=== PATIENT | female | born 1985 | race Caucasian/White ===

== ENCOUNTER 2020-10-10 19:29 | Emergency (ER) | payer OTHER, SELFPAY ==
--- NOTE | 2020-10-10 19:32 | ED_ITS ---
HPI - Abdominal Pain General Chief Complaint: Abdominal Pain Stated Complaint: right side abd pains,nausea Time Seen by Provider: 10/10/20 19:32 Source: patient Mode of arrival: Ambulatory Limitations: no limitations History of Present Illness HPI narrative: 35F nonsmoker with history of chronic abdominal pelvic pain presents with a chief complaint of 3 days of increasing right lower quadrant pain that feels different than prior episodes. She has had nausea and a few episodes of vomiting. She denies any fever or chills. Her pain is worse when she moves and improves with rest. She denies any vaginal bleeding, discharge, dysuria, frequency or urgency. She states that is sharp and stabbing and 10/10. It initially was a bit intermittent and now is persistent. MD complaint: abdominal pain Onset (ago): day(s) Pain Consistency: constant Location: RLQ Severity: severe Quality: cramping and stabbing Radiation: none Relieving factors: rest Exacerbating factors: movement Associated symptoms: nausea Related Data Home Medications Medication Instructions Recorded Confirmed morphine 30 mg PO Q12H 10/10/20 10/10/20 oxycodone 10 mg PO TID PRN 10/10/20 10/10/20 Previous Rx's Medication Instructions Recorded amoxicillin-pot clavulanate 1 tab PO BID #20 tab 10/10/20 [Augmentin] ondansetron 4 mg PO TID-QID PRN #10 tab 10/10/20 promethazine 12.5 mg AL Q4-6H PRN #12 each 10/10/20 Allergies Allergy/AdvReac Type Severity Reaction Status Date / Time celecoxib [From Celebrex] AdvReac Vomiting Verified 10/10/20 19:51 codeine AdvReac Abdominal Verified 10/10/20 19:51 Pain ketorolac [From Toradol] AdvReac Vomiting Verified 10/10/20 19:51 metoclopramide [From Reglan] AdvReac Verified 10/10/20 19:51 NSAIDS (Non-Steroidal AdvReac Vomiting Verified 10/10/20 19:51 Anti-Inflamma tramadol [From Ultram] AdvReac Verified 10/10/20 19:51 Review of Systems Constitutional Constitutional: Denies chills, Denies fatigue, Denies fever(s), Denies frequent falls, Denies lethargy and Denies weakness Eyes Eyes: Denies change in vision, Denies eye discharge, Denies irritation and Denies loss of vision ENT Ears, Nose, Mouth, and Throat: Denies change in voice, Denies dizziness, Denies neck pain, Denies sore throat and Denies throat swelling Cardiovascular Cardiovascular: Denies chest pain, Denies irregular heart rhythm, Denies lightheadedness, Denies palpitations, Denies dyspnea, Denies dyspnea on exertion and Denies orthopnea Respiratory Respiratory: Denies cough, Denies dyspnea, Denies dyspnea on exertion and Denies wheezing Gastrointestinal Gastrointestinal: Reports abdominal pain, Denies change in bowel habits, Denies diarrhea and Reports nausea Musculoskeletal Musculoskeletal: Denies neck pain and Denies numbness Integumentary/Breasts Skin/Breast: Denies pruritus, Denies erythema, Denies rash and Denies wounds Neurologic Neurologic: Denies behavioral changes, Denies confusion, Denies dizziness, Denies frequent falls, Denies loss of vision, Denies numbness and Denies weakness Psychiatric Psychiatric: Denies anxiety, Denies behavioral changes, Denies confusion, Denies depression, Denies homicidal ideation and Denies suicidal ideation Endocrine Endocrine: Denies fatigue, Denies flushing and Denies palpitations Hematologic/Lymphatic Hematologic/Lymphatic: Denies easy bruising Allergic/Immunologic Allergic/Immunologic: Denies urticaria, Denies throat swelling and Denies wheezing Patient History alcohol intake frequency: 0-2 drinks per day Exam Narrative Exam Narrative: GENERAL: [35] year old patient appears stated age. Well-nouris hed, well-developed patient, in obvious pain, rubbing her lower abdomen, tearful HEAD: Atraumatic. Normocephalic. EYES: Pupils equal round and reactive. Extraocular motions intact. No scleral icterus. No injection or drainage. ENT: Nose without bleeding, purulent drainage. Throat without erythema, tonsillar hypertrophy or exudate. Airway patent. NECK: Trachea midline. Non tender CARDIOVASCULAR: Regular rate and rhythm without murmurs, gallops, or rubs. RESPIRATORY: Clear to auscultation. Breath sounds equal bilaterally. No wheezes, rales, or rhonchi. GASTROINTESTINAL: Abdomen soft, tender in the lower abdomen no rebound, nondistended. Bowel sounds present in all 4 quadrants EXTREMITIES: No edema or joint tenderness. BACK: Nontender without deformity or crepitance. No flank tenderness. NEURO: AOx3. SKIN: No rash or erythema of visible areas Initial Vital Signs Initial Vital Signs: Vital Signs Temperature 98.0 F 10/10/20 19:51 Pulse Rate 105 H 10/10/20 19:51 Respiratory Rate 22 10/10/20 19:51 Blood Pressure 148/103 H 10/10/20 19:51 Pulse Oximetry 100 10/10/20 19:51 Course Orders Ordered: ED Orders 10/10/20 19:50 Complete Blood Count AUTO DIFF Stat Comprehensive Metabolic Panel Stat 10/10/20 20:03 CT abdomen pelvis w con Stat 10/10/20 20:10 Blood Culture Stat Ondansetron HCl (Ondansetron 4 Mg/2 Ml Inj) 4 mg IV Q4HR PRN PRN Reason: Nausea And Vomiting Last Admin: 10/10/20 19:47 Dose: 4 mg Documented by: VANDANA Discontinued Medications Amoxicillin/Clavulanate Potassium (Amoxicillin/Clav 875/125 Mg) 1 tab PO NOW ONE Stop: 10/10/20 21:09 Last Admin: 10/10/20 21:16 Dose: 1 tab Documented by: Hydromorphone HCl (Hydromorphone 0.5 Mg Inj) 0.5 mg IV NOW ONE Stop: 10/10/20 19:38 Last Admin: 10/10/20 19:47 Dose: 0.5 mg Documented by: VANDANA Sodium Chloride (Normal Saline 0.9%) 1,000 mls @ 1,000 mls/hr IV BOLUS ONE Stop: 10/10/20 20:36 Last Admin: 10/10/20 19:47 Dose: 1,000 mls/hr Documented by: VANDANA Ondansetron HCl (Ondansetron 4 Mg Odt Prepack) 1 bottle MISC SEEINSTR ONE Stop: 10/10/20 21:09 Last Admin: 10/10/20 21:15 Dose: 1 bottle Documented by: Vital Signs Vital signs: Vital Signs - 8 hr 10/10/20 19:51 Temperature 98.0 F Pulse Rate 105 H Respiratory Rate 22 Blood Pressure 148/103 H Pulse Oximetry 100 MDM - Abdominal Pain Lab Data Result diagrams: 10/10/20 19:50 10/10/20 19:50 Labs: Lab Results 10/10/20 10/10/20 Range/Units 19:50 19:50 WBC 9.3 (4.5-11.0) X10^3/uL RBC 4.81 (4.0-5.2) X10^6/uL Hgb 12.0 (12.0-16.0) g/dL Hct 38.3 (36-46) % MCV 79.5 L (80-100) fL MCH 25.0 L (26-34) PG MCHC 31.4 (30-36) % RDW 16.2 H (11.6-14.8) % Plt Count 307 (150-400) X10^3/uL Neut % (Auto) 45.9 L (50-75) % Lymph % (Auto) 45.0 H (25-40) % [place] % (Auto) 4.9 (3-14) % Eos % (Auto) 2.2 (2-4) % Baso % (Auto) 2.0 (0-2) % Neut # (Auto) 4200 (6479-4082) /uL Lymph # (Auto) 4200 (4710-6372) /uL [place] # (Auto) 500 (0-900) /uL Eos # (Auto) 200 (0-450) /uL Baso # (Auto) 200 H (0-100) /uL Sodium 137 (137-145) mmol/L Potassium 5.5 H (3.4-5.1) mmol/L Chloride 106 (98-107) mmol/L Carbon Dioxide 22 (22-32) mmol/L BUN 11 (7-17) mg/dL Creatinine 0.71 (0.52-1.04) mg/dL Estimated GFR > 60.0 (>60) mL/min BUN/Creatinine Ratio 15.5 (6-22) Glucose 99 (70-100) mg/dL Calcium 9.3 (8.4-10.2) mg/dL Total Bilirubin 0.9 (0.2-1.3) mg/dL AST 51 H (14-36) IU/L ALT 24 (<35) IU/L Alkaline Phosphatase 90 (38-126) U/L Total Protein 8.6 H (6.3-8.2) g/dL Albumin 4.9 (3.5-5.0) g/dL Globulin 3.7 (1.7-4.1) g/dL Albumin/Globulin Ratio 1.3 (1.0-2.8) Point of care testing: Urine Dip Bedside Urine Glucose Negative Bedside Urine Bilirubin - Negative Bedside Urine Ketone - Negative Urine Specific Bim 1.015 Bedside Urine Occult Blood - Negative Bedside Urine pH 6.0 Bedside Urine Protein - Negative Bedside Urine Urobilinogen - Negative Bedside Urine Nitrite - Negative Bedside Urine Leukocytes - Negative Esterase Imaging Data CT scan - abdomen/pelvis: Radiologist's Impression: [address] [id number] Scan ReportSigned Patient: China SiddiquiMR#: [id number]: 1985Acct:[id number]/Sex: 35 / FDate of Service: 10/10/20Loc: EDAccession Number: [id number] Procedure: CT abdomen pelvis w con Ordering Provider: Jose Manuel Antonio D.O. PROCEDURE: CT ABDOMEN PELVIS W CON INDICATIONS: severe RLQ pain TECHNIQUE: After the administration of intravenous contrast, 5 mm thick sections acquired from the diaphragm to the symphysis. 5 mm coronal and sagittal reformats were acquired. For radiation dose reduction, the following was used: automated exposure control, adjustment of mA and/or kV according to patient size. COMPARISON: None. FINDINGS: Image quality: Excellent. ABDOMEN: Lung bases: Lung bases are clear. Heart size is normal. Solid organs: Liver is normal in size and enhancement. Gallbladder is surgically absent. Biliary system is non dilated. Pancreas enhances normally. Spleen is normal in size and enhancement. No adrenal nodules. Kidneys demonstrate normal size and enhancement, without hydronephrosis. Peritoneum and bowel: There is no evidence of bowel obstruction. No gastric or small bowel wall thickening. Appendix is visualized in right lower quadrant and is within normal limits. Questionable wall thickening involving descending colon and sigmoid colon is seen with narrowing of the lumen. No significant pericolonic fat stranding. There is no abscess collection. No free fluid or free air. Nodes and vessels: No retroperitoneal or mesenteric adenopathy by size criteria. Aorta and inferior vena cava are normal in size. Miscellaneous: Small umbilical hernia is seen containing fat only. PELVIS: Genitourinary: Bladder wall thickness is normal. Patient is status post hysterectomy. Miscellaneous: No inguinal hernias or adenopathy. Bones: No suspicious bony lesions. No vertebral body compression fractures. IMPRESSION: 1. Questionable descending and sigmoid colon wall thickening with narrowing of the lumen which may be due to under distension. Low-grade colitis cannot be excluded. 2. Normal appendix. No abscess collection. No bowel obstruction. No free fluid or free air. 3. Prior cholecystectomy and hysterectomy. Dictated by: Travon Xie M.D. on 10/10/2020 at 21:00 Approved by: Travon Xie M.D. on 10/10/2020 at 21:02 [facility] Narrative Medical decision making narrative: Multiple etiologies for patient's symptoms considered including: [Appendicitis versus bowel obstruction versus colitis versus other] Patient's symptoms improved over duration of stay with above-stated therapies. Findings and discharge diagnosis discussed with patient/family followed by verbalization of understanding Return precautions discussed with patient/family whom verbalize understanding. Discharge Plan Departure Patient Disposition: Home Clinical Impression: Colitis Instructions: DI for Abdominal Pain-Adult Activity Restrictions/Additional Instructions: *You have been diagnosed with [bowel pain from colitis. Lab work is very reassuring and CT scan shows no surgical problems such as bowel obstruction or appendicitis.] *What to do: *Take medications as directed: Prescriptions sent to [facility] at your request *Follow up with your primary care provider in 2-3 days, call for an appointment. Let them know you were seen in the Emergency Department and that we ask that you be seen in follow up *Return to ER if you should have any new, worsening or concerning symptoms, such as [increasing pain, fever greater than 101 F, persistent vomiting or other bothersome symptoms] Please consider a clear liquid diet for 24-48 hours and then advance back to your normal diet slowly as tolerated Prescriptions: New ondansetron 4 mg tablet,disintegrating 4 mg PO TID-QID PRN (Reason: nausea and vomiting) Qty: 10 RF: 0 amoxicillin-pot clavulanate [Augmentin] 875-125 mg tablet 1 tab PO BID Qty: 20 RF: 0 promethazine 12.5 mg suppository 12.5 mg AL Q4-6H PRN (Reason: nausea and vomiting) Qty: 12 RF: 0 No Action morphine 30 mg Tablet Extended Release 30 mg PO Q12H RF: 0 oxycodone 10 mg Tablet 10 mg PO TID PRN (Reason: Pain (Scale Score 7-10)) RF: 0 Referrals: Miscellaneous,Doctor, MD [Primary Care Provider] -
[2020-10-10] MEDS: ONDANSETRON 4 MG/2 ML INJ IV (19:47)
[2020-10-10] MEDS: SODIUM CHLORIDE 0.9% 1,000 ML 1000 ML IV (19:47)
[2020-10-10] MEDS: HYDROMORPHONE 0.5 MG INJ IV (19:47)
[2020-10-10 19:51] VITALS: BP 148/103; PULSE 105; RESP 22; TEMP 36.7; O2SAT 100; BMI 30.2
[2020-10-10 19:53] VITALS: PULSE 102; O2SAT 99
[2020-10-10 19:54] VITALS: BP 141/90; PULSE 103; O2SAT 100
[2020-10-10 20:00] VITALS: BP 142/93; PULSE 104; O2SAT 100
--- NOTE | 2020-10-10 20:03 | DI.CT.S_ITS ---
PROCEDURE: CT ABDOMEN PELVIS W CON INDICATIONS: severe RLQ pain TECHNIQUE: After the administration of intravenous contrast, 5 mm thick sections acquired from the diaphragm to the symphysis. 5 mm coronal and sagittal reformats were acquired. For radiation dose reduction, the following was used: automated exposure control, adjustment of mA and/or kV according to patient size. COMPARISON: None. FINDINGS: Image quality: Excellent. ABDOMEN: Lung bases: Lung bases are clear. Heart size is normal. Solid organs: Liver is normal in size and enhancement. Gallbladder is surgically absent. Biliary system is non dilated. Pancreas enhances normally. Spleen is normal in size and enhancement. No adrenal nodules. Kidneys demonstrate normal size and enhancement, without hydronephrosis. Peritoneum and bowel: There is no evidence of bowel obstruction. No gastric or small bowel wall thickening. Appendix is visualized in right lower quadrant and is within normal limits. Questionable wall thickening involving descending colon and sigmoid colon is seen with narrowing of the lumen. No significant pericolonic fat stranding. There is no abscess collection. No free fluid or free air. Nodes and vessels: No retroperitoneal or mesenteric adenopathy by size criteria. Aorta and inferior vena cava are normal in size. Miscellaneous: Small umbilical hernia is seen containing fat only. PELVIS: Genitourinary: Bladder wall thickness is normal. Patient is status post hysterectomy. Miscellaneous: No inguinal hernias or adenopathy. Bones: No suspicious bony lesions. No vertebral body compression fractures. IMPRESSION: 1. Questionable descending and sigmoid colon wall thickening with narrowing of the lumen which may be due to under distension. Low-grade colitis cannot be excluded. 2. Normal appendix. No abscess collection. No bowel obstruction. No free fluid or free air. 3. Prior cholecystectomy and hysterectomy. Dictated by: Travon Xie M.D. on 10/10/2020 at 21:00 Approved by: Travon Xie M.D. on 10/10/2020 at 21:02
[2020-10-10 20:04] LABS: Add Manual Diff / Slide Review NO; Basophils Absolute Auto 200 /uL (0-100); Eosinophils Absolute Auto 200 /uL (0-450); Eosinophils Percent Auto 2.2 % (2-4); Hematocrit 38.3 % (36-46); Lymphocytes Absolute Auto 4200 /uL (1100-4500); Mean Corpuscular HGB Conc 31.4 % (30-36); Mean Corpuscular Volume 79.5 fL (80-100); Monocytes Absolute Auto 500 /uL (0-900); Monocytes Percent Auto 4.9 % (3-14); Neutrophils Absolute Auto 4200 /uL (1500-7000); Neutrophils Percent Auto 45.9 % (50-75); Platelet Count 307 X10^3/uL (150-400); Red Blood Cell Count 4.81 X10^6/uL (4.0-5.2); Red Cell Distribution Width 16.2 % (11.6-14.8); White Blood Cell Count 9.3 X10^3/uL (4.5-11.0)
[2020-10-10 20:23] LABS: Alanine Aminotransferase 24 IU/L (<35); Albumin 4.9 g/dL (3.5-5.0); Albumin Globulin Ratio 1.3 (1.0-2.8); Alkaline Phosphatase 90 U/L (38-126); Aspartate Aminotransferase 51 IU/L (14-36); BUN Creatinine Ratio 15.5 (6-22); Bilirubin Total 0.9 mg/dL (0.2-1.3); Blood Urea Nitrogen 11 mg/dL (7-17); Calcium 9.3 mg/dL (8.4-10.2); Carbon Dioxide 22 mmol/L (22-32); Chloride 106 mmol/L (98-107); Estimated Glomerular Filt Rate > 60.0 mL/min (>60); Globulin 3.7 g/dL (1.7-4.1); Glucose 99 mg/dL (70-100); Sodium 137 mmol/L (137-145); Total Protein 8.6 g/dL (6.3-8.2)
[2020-10-10 20:28] LABS: HEMOLYSIS 211 (0-50); Potassium 5.5 mmol/L (3.4-5.1)
[2020-10-10 20:30] VITALS: BP 158/89; PULSE 90; O2SAT 100
[2020-10-10 21:04] VITALS: BP 141/89
[2020-10-10] MEDS: ONDANSETRON 4 MG ODT PREPACK 1 BOTTLE MISC (21:15)
[2020-10-10] MEDS: AMOXICILLIN/CLAV 875/125 MG 1 TAB PO (21:16)
== END 2020-10-10 21:22 | disposition home or self-care (01) ==
PROVIDERS: Emergency Provider Emergency Medicine
DX: K52.9 Noninfective gastroenteritis and colitis, unspecified (principal)
CPT/HCPCS: 36415; 74177; 80053; 81003; 85025; 87040; 96361; 96374; 96375; 99284; J1170; J2405; Q9967

== ENCOUNTER 2020-11-19 19:56 | Emergency (ER) | payer OTHER, SELFPAY ==
[2020-11-19 20:05] VITALS: BP 151/88; PULSE 100; RESP 20; TEMP 36.6; O2SAT 100; BMI 28.8
--- NOTE | 2020-11-19 21:35 | ED_ITS ---
HPI - Headache General Chief Complaint: Headache Stated Complaint: possible medication reaction, eye pressure,elev HR Time Seen by Provider: 11/19/20 20:13 Mode of arrival: Ambulatory Limitations: no limitations History of Present Illness HPI Narrative: 35-year-old woman with a history of chronic pain on chronic pain management, fibromyalga, anxiety depression panic attack and PTSD. She notes that much of her psychiatric issues were significantly improved when she was living in [place]. She and her were stationed back on [facility] in July. She notes that she had a number of ?issues? when she lived on [facility] previously and many of these anxieties are presenting as much more problematic as she has returned. She is finding that she is having difficulty with increasing anxiety, sleeping, feeling that she is going crazy, perseverating thoughts and she had her 1st panic attack. She had a very difficult time finding of provider who was willing to handle her chronic pain management when she moved back up. She has had difficulty finding a provider to help with her psychiatric issues or a counselor. She has been trying value at [facility] to establish care. She comes in today after she was started on Coreg with complaints of ?feeling weird?, visual changes in the left eye, pressure over the whole side of her face with numbness immediately after taking the 1st dose. At this time she still has some slight decreased sensation. She had near panic attack over the symptoms that she experienced with the Coreg and is concerned that the Coreg is a problem. She was seen in to fill in their ER for similar sounding complaints was given a prescription for 1 mg Ativan but has been afraid to take that. One of her psychiatric providers had given her nebulized ketamine which she tried with inappropriate dosing technique and significantly less medication delivered but found that it did help relieve some of her paranoia. She does not report hearing any voices, she does feel that she is becoming more paranoid and concerned that she can not continue functioning, increasingly anxious and overwhelmed. She has been on multiple antidepressants in the past and feels that many of them were not effective. She was recently diagnosed with ADHD and started on methylphenidate. Related Data Home Medications Medication Instructions Recorded Confirmed morphine 30 mg PO Q12H 10/10/20 10/10/20 oxycodone 10 mg PO TID PRN 10/10/20 10/10/20 Previous Rx's Medication Instructions Recorded amoxicillin-pot clavulanate 1 tab PO BID #20 tab 10/10/20 [Augmentin] ondansetron 4 mg PO TID-QID PRN #10 tab 10/10/20 promethazine 12.5 mg NE Q4-6H PRN #12 each 10/10/20 duloxetine [Cymbalta] 20 mg PO BID #60 cap 11/19/20 Allergies Allergy/AdvReac Type Severity Reaction Status Date / Time celecoxib [From Celebrex] AdvReac Vomiting Verified 10/10/20 19:51 codeine AdvReac Abdominal Verified 10/10/20 19:51 Pain ketorolac [From Toradol] AdvReac Vomiting Verified 10/10/20 19:51 metoclopramide [From Reglan] AdvReac Verified 10/10/20 19:51 NSAIDS (Non-Steroidal AdvReac Vomiting Verified 10/10/20 19:51 Anti-Inflamma tramadol [From Ultram] AdvReac Verified 10/10/20 19:51 Review of Systems Review of Systems Narrative: She notes intermittent chest pain, positive palpitations, dyspnea when she is increasingly anxious, nausea and diarrhea associated with anxiety. She reports no evidence of a dysuria, hematuria, rashes, syncope. She denies any suicidal ideation Remainder of complete review of systems is otherwise unremarkable except for that included in the HPI. Patient History Medical History Anxiety Chronic pain Chronic post-traumatic stress disorder Depression Fibromyalgia alcohol intake frequency: 0-2 drinks per day Substance Use Type: former substance user Exam Narrative Exam Narrative: General: Healthy physical appearance with significant emotional distress. HEENT: Moist mucous membranes, normal sclera with reactive pupils, Respiratory: Lungs are clear to auscultation, no wheezing no rales no rhonchi. Full and symmetrical air movement Cardiac: Regular rate and rhythm no murmurs no bruits Abdomen: Soft, nontender, good bowel tones, no flank pain Skin: Warm and dry, no rashes Neurologic: Grossly neurologically intact with no obvious asymmetries or abnor malities Extremities: No trauma, well perfused Psych: Cooperative, appropriate insight and affect, good eye contact with nonpressured speech Initial Vital Signs Initial Vital Signs: Vital Signs Temperature 97.9 F 11/19/20 20:05 Pulse Rate 100 H 05/13/21 20:05 Respiratory Rate 20 11/19/20 20:05 Blood Pressure 151/88 H 11/19/20 20:05 Pulse Oximetry 100 11/19/20 20:05 Course Vital Signs Vital signs: Vital Signs - 8 hr 11/19/20 20:05 Temperature 97.9 F Pulse Rate 100 H Respiratory Rate 20 Blood Pressure 151/88 H Pulse Oximetry 100 MDM - Headache MDM Narrative Medical decision making narrative: 35-year-old woman with concerns regarding left facial symptoms after 1st dose of Coreg that all seemed very clearly related to overwhelming anxiety. It does seem that her overall stress, PTSD, depression with subsequent anxiety have worsened dramatically since returning to [facility] in July. She is having difficulty establishing care but trying to be quite responsible in doing so. Increased stressors in dealing with the trauma she experienced here when she lived in the area from [id number]. She apparently has 2 children with situational issues and there on stress is, depression and psychiatric as well as medical provider needs. At this time she has no suicidal ideation but she is asking for help. She notes that it points in her life she has been on he would numbers of medications and is quite pleased with the minimal amount of medication she currently is on. We had a long discussion regarding antidepressants. She was on duloxetine for an extended period of time and felt that of the antidepressants that she has been on this was probably the most helpful. She does not believe that any of them have been all that useful. She was recently started on methylphenidate for ADD and she believes that is helping. She is willing to reconsider going back on duloxetine and feels that it probably would be appropriate to be on some type of antidepressant. She does have a counseling appointment coming up next week but will likely not be able to get to a psychiatric prescriber for an extended period of time. Will go ahead and start her on low-dose duloxetine, 20 mg b.i.d. to see if we can help with immediate symptoms. She currently has 1 mg Ativan tablets and I reassured her that she can take 0.5 mg at least once a day as needed for overwhelming anxiety even in light of her chronic opioid medications. Total of 47 minutes was spent in direct consultation and counseling today. She is safe for discharge Discharge Plan Departure Patient Disposition: Home Clinical Impression: Anxiety, Chronic post-traumatic stress disorder Depression Qualifiers: Depression Type: unspecified Qualified Code(s): F32.9 - Major depressive disorder, single episode, unspecified Instructions: DI for Depression -- Adult, DI for Anxiety -- Adult Activity Restrictions/Additional Instructions: Thank you for coming in today I am sorry you are feeling so overwhelmed. I do think that the symptoms that you experienced after taking the Coreg were more related to anxiety than anything life-threatening. You have done all of the appropriate steps in trying to get established with physicians. Please continue to make sure that you are working on the psycholog ist appointment. From there I think that you will significantly benefit from eventually being seen by a psychiatrist to talk about appropriate medications for you. In the meantime, I am going to suggest that you restart Cymbalta at a low dose and see how it helps with your overall anxiety and mood. I suspect that now that you are on the Adderall, you may find that the antidepressants are more e ffective for you. 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 When the stress is completely overwhelming, it is safe to use 0.5 mg of Ativan up to once a day. If you feel like you need to kill yourself or hurt anybody else, please feel free to return to the emergency room Prescriptions: New duloxetine [Cymbalta] 20 mg capsule,delayed release(DR/EC) 20 mg PO BID Qty: 60 RF: 0 No Action morphine 30 mg Tablet Extended Release 30 mg PO Q12H RF: 0 oxycodone 10 mg Tablet 10 mg PO TID PRN (Reason: Pain (Scale Score 7-10)) RF: 0 ondansetron 4 mg tablet,disintegrating 4 mg PO TID-QID PRN (Reason: nausea and vomiting) Qty: 10 RF: 0 amoxicillin-pot clavulanate [Augmentin] 875-125 mg tablet 1 tab PO BID Qty: 20 RF: 0 promethazine 12.5 mg suppository 12.5 mg NE Q4-6H PRN (Reason: nausea and vomiting) Qty: 12 RF: 0 Referrals: Sera Lema [Primary Care Provider] -
== END 2020-11-19 21:49 | disposition home or self-care (01) ==
PROVIDERS: Emergency Provider Emergency Medicine; PCP Physician Assistant
DX: F32.9 Major depressive disorder, single episode, unspecified (principal); F41.9 Anxiety disorder, unspecified; F43.12 Post-traumatic stress disorder, chronic
CPT/HCPCS: 99281

== ENCOUNTER 2020-11-20 18:41 | Emergency (ER) | payer OTHER, SELFPAY ==
[2020-11-20 18:50] VITALS: BP 139/91; PULSE 102; RESP 16; TEMP 35.9; O2SAT 100; BMI 28.9
--- NOTE | 2020-11-20 21:13 | ED_ITS ---
HPI - Psych General Chief Complaint: Psychiatric Symptoms Stated Complaint: NAUSEA REACTION TO THE MEDICATION Time Seen by Provider: 11/20/20 19:18 Source: patient and family () Mode of arrival: Ambulatory Limitations: no limitations History of Present Illness HPI Narrative: Patient is a 35-year-old female who is here for the 2nd time within the past week for symptoms that seem to be somewhat difficult for her to describe. She has had some nausea. She thinks she is potentially reacting to some medications. She is relatively new to the area and has a primary doctor but has not seen this doctor up to this point. She states that this individual only ?writes referrals ?although she does states he is her primary provider. She has another provider that has written her psychiatric medications. She also has a pain management doctor that she sees. She is recently started on carvedilol for which she states was a fast heart rate. During her last visit here she was also given a prescription for Cymbalta. She is also at some point received a prescription for Ativan. At some point in the past couple weeks was also diagnosed with which she describes as pancreatitis and placed on medications for this. She returns today because she continues to not feel well. Related Data Home Medications Medication Instructions Recorded Confirmed morphine 30 mg PO Q12H 10/10/20 10/10/20 oxycodone 10 mg PO TID PRN 10/10/20 10/10/20 Previous Rx's Medication Instructions Recorded amoxicillin-pot clavulanate 1 tab PO BID #20 tab 10/10/20 [Augmentin] ondansetron 4 mg PO TID-QID PRN #10 tab 10/10/20 promethazine 12.5 mg DE Q4-6H PRN #12 each 10/10/20 duloxetine [Cymbalta] 20 mg PO BID #60 cap 11/19/20 Allergies Allergy/AdvReac Type Severity Reaction Status Date / Time celecoxib [From Celebrex] AdvReac Vomiting Verified 10/10/20 19:51 codeine AdvReac Abdominal Verified 10/10/20 19:51 Pain ketorolac [From Toradol] AdvReac Vomiting Verified 10/10/20 19:51 metoclopramide [From Reglan] AdvReac Verified 10/10/20 19:51 NSAIDS (Non-Steroidal AdvReac Vomiting Verified 04/03/21 19:51 Anti-Inflamma tramadol [From Ultram] AdvReac Verified 10/10/20 19:51 Review of Systems Constitutional Constitutional: Denies fever(s), Reports headache(s) and Reports malaise Eyes Eyes: Reports system reviewed and no additional complaints, except as documented ENT Ears, Nose, Mouth, and Throat: Reports system reviewed and no additional complaints, except as documented and Reports headache(s) Cardiovascular Cardiovascular: Denies chest pain and Denies dyspnea Respiratory Respiratory: Denies dyspnea Gastrointestinal Gastrointestinal: Reports nausea Genitourinary Genitourinary: Reports system reviewed and no additional complaints, except as documented Musculoskeletal Musculoskeletal: Reports system reviewed and no additional complaints, except as documented Integumentary/Breasts Skin/Breast: Reports system reviewed and no additional complaints, except as documented Neurologic Neurologic: Reports system reviewed and no additional complaints, except as documented and Reports headache(s) Psychiatric Psychiatric: Reports anxiety Endocrine Endocrine: Reports system reviewed and no additional complaints, except as documented Hematologic/Lymphatic On Anticoagulants: No Allergic/Immunologic Allergic/Immunologic: Reports system reviewed and no additional complaints, except as documented Patient History Medical History Anxiety Chronic pain Chronic post-traumatic stress disorder Depression Fibromyalgia alcohol intake frequency: 0-2 drinks per day Substance Use Type: former substance user Exam Initial Vital Signs Initial Vital Signs: Vital Signs Temperature 96.7 F L 11/20/20 18:50 Pulse Rate 102 H 11/20/20 18:50 Respiratory Rate 16 11/20/20 18:50 Blood Pressure 139/91 H 11/20/20 18:50 Pulse Oximetry 100 11/20/20 18:50 Const General: cooperative, anxious and No ill appearing Limitations: mental status not altered [facility] Head: normal to inspection Resp Effort & Inspection: normal respiratory effort Cardio Rate: regular rate Skin Lesions: no lesions Rashes: no rashes Neuro General: patient alert and patient awake Speech: speech normal Extrem General: normal to inspection Psych Appearance: well kempt Scores GCS Mary coma scale eye opening: Spontaneous Mary coma scale verbal response: Orientated Mary coma scale motor response: Obey commands Mary coma scale total score: 15 Course Vital Signs Vital signs: Vital Signs - 8 hr 11/20/20 21:23 Temperature 98.5 F Pulse Rate 90 Blood Pressure 135/85 Pulse Oximetry 98 MDM - Psych MDM Narrative Medical decision making narrative: Had a long discussion with the patient and her regarding her medications. I did inform her that instead of having multiple providers prescribed multiple medications for her she needs 1 primary provider in order to manage all of this. She states that she has a primary provider but this individual only places referrals from her. She states she has tried to contact them. Apparently she tried to contact them today but had to leave a message. I encouraged her to continue to try to contact her primary doctor to get in to see him so that they can discuss her medications. Patient states she was started on carvedilol for a fast heart rate. This medication I suspect would decrease her heart rate but not necessarily be the 1st choice for a tachycardia that is most likely related to anxiety related issues. Her symptoms did seem to start around the time that she was prescribed him/started taking this medication. It does not sound like she is taking this medication because of high blood pressure nor heart failure so I informed her that she should stop taking it and again make contact with her primary doctor to discuss potential other medications in replacement. She would also like to stop taking the Cymbalta as she feels like this could potentially be causing some of her symptoms as well. She was given the phone number for the health [employer] resource [employer] so she could try to establish a primary doctor in this local area. She was told to could be 4-6 weeks before she get in to see someone has a new patient but not all at this discard her from making appointments. I feel the patient can be safely discharged home without further workup. She was given return precautions. Discharge Plan Departure Patient Disposition: Home Clinical Impression: Nausea, Anxiety Instructions: DI for Nausea -- Adult Activity Restrictions/Additional Instructions: I recommend that you stop taking the carvedilol. I also recommend that on Monday you contact your primary provider for a follow-up. You can also contact the health resource is coordinator at [phone]. This individual can help you establish a primary doctor here in the [facility] a few would prefer that. Prescriptions: No Action morphine 30 mg Tablet Extended Release 30 mg PO Q12H RF: 0 oxycodone 10 mg Tablet 10 mg PO TID PRN (Reason: Pain (Scale Score 7-10)) RF: 0 ondansetron 4 mg tablet,disintegrating 4 mg PO TID-QID PRN (Reason: nausea and vomiting) Qty: 10 RF: 0 amoxicillin-pot clavulanate [Augmentin] 875-125 mg tablet 1 tab PO BID Qty: 20 RF: 0 promethazine 12.5 mg suppository 12.5 mg DE Q4-6H PRN (Reason: nausea and vomiting) Qty: 12 RF: 0 duloxetine [Cymbalta] 20 mg capsule,delayed release(DR/EC) 20 mg PO BID Qty: 60 RF: 0 Referrals: Sera Lema [Primary Care Provider] -
[2020-11-20 21:23] VITALS: BP 135/85; PULSE 90; TEMP 36.9; O2SAT 98
== END 2020-11-20 21:24 | disposition home or self-care (01) ==
PROVIDERS: Emergency Provider Emergency Medicine; PCP Physician Assistant
DX: R11.0 Nausea (principal); F41.9 Anxiety disorder, unspecified; R51.9 Headache, unspecified
CPT/HCPCS: 99281; 99283

== ENCOUNTER 2020-12-16 20:01 | Emergency (ER) | payer OTHER, SELFPAY ==
[2020-12-16 20:05] VITALS: BP 138/87; PULSE 84; RESP 20; TEMP 36.7; O2SAT 100
[2020-12-16 20:27] LABS: Add Manual Diff / Slide Review NO; Basophils Absolute Auto 100 /uL (0-100); Eosinophils Absolute Auto 300 /uL (0-450); Eosinophils Percent Auto 2.4 % (2-4); Hematocrit 35.3 % (36-46); Hemoglobin 11.7 g/dL (12.0-16.0); Lymphocytes Absolute Auto 3900 /uL (1100-4500); Lymphocytes Percent Auto 36.8 % (25-40); Mean Corpuscular HGB Conc 33.2 % (30-36); Mean Corpuscular Hemoglobin 26.4 PG (26-34); Mean Corpuscular Volume 79.4 fL (80-100); Monocytes Absolute Auto 700 /uL (0-900); Monocytes Percent Auto 6.8 % (3-14); Neutrophils Absolute Auto 5600 /uL (1500-7000); Platelet Count 292 X10^3/uL (150-400); Red Blood Cell Count 4.45 X10^6/uL (4.0-5.2); Red Cell Distribution Width 14.5 % (11.6-14.8); White Blood Cell Count 10.5 X10^3/uL (4.5-11.0)
[2020-12-16 20:42] LABS: Alanine Aminotransferase 23 IU/L (<35); Albumin 4.1 g/dL (3.5-5.0); Albumin Globulin Ratio 1.2 (1.0-2.8); Alkaline Phosphatase 81 U/L (38-126); Aspartate Aminotransferase 38 IU/L (14-36); BUN Creatinine Ratio 11.1 (6-22); Bilirubin Total 0.2 mg/dL (0.2-1.3); Blood Urea Nitrogen 8 mg/dL (7-17); Calcium 9.5 mg/dL (8.4-10.2); Carbon Dioxide 29 mmol/L (22-32); Chloride 102 mmol/L (98-107); Estimated Glomerular Filt Rate > 60.0 mL/min (>60); Globulin 3.4 g/dL (1.7-4.1); Glucose 104 mg/dL (70-100); HEMOLYSIS < 15 (0-50); Lipase 21 U/L (23-300); Potassium 3.2 mmol/L (3.4-5.1); Sodium 139 mmol/L (137-145); Total Protein 7.5 g/dL (6.3-8.2)
--- NOTE | 2020-12-16 20:47 | DI.CT.S_ITS ---
PROCEDURE: CT ABDOMEN PELVIS W CON INDICATIONS: periumbilical and Right lower quadrant pain, history of colitis TECHNIQUE: After the administration of intravenous contrast, 5 mm thick sections acquired from the diaphragm to the symphysis. 5 mm coronal and sagittal reformats were acquired. For radiation dose reduction, the following was used: automated exposure control, adjustment of mA and/or kV according to patient size. COMPARISON: [facility], CT, CT ABDOMEN PELVIS W CON, 10/10/2020, 20:38. FINDINGS: Image quality: Excellent. ABDOMEN: Lung bases: Patchy bilateral ground-glass airspace opacities, likely infectious. No pleural effusion. Solid organs: Normal CT appearance of the liver. Mild intrahepatic and extrahepatic biliary ductal dilatation is likely a function of post cholecystectomy reservoir phenomenon. The spleen is unremarkable. Pancreas is with normal normal limits. No adrenal gland mass. No hydronephrosis or perinephric fat stranding. Symmetric nephrograms. Peritoneum and bowel: Normal nondilated appendix with no adjacent inflammatory changes. Fernández colonic distribution of formed stool suggestive of constipation. No abnormally dilated or thickened loop of bowel. No free fluid or free air. No pericolonic or mesenteric inflammatory change. Nodes and vessels: No threshold enlarged intra-abdominal or retroperitoneal lymph node. Nonaneurysmal abdominal aorta. Miscellaneous: No ventral hernia demonstrated. PELVIS: Genitourinary: Urinary bladder thickness is normal. Miscellaneous: No threshold enlarged pelvic or inguinal lymph node. Bones: No suspicious bony lesions. No vertebral body compression fractures. IMPRESSION: Patchy bilateral ground-glass airspace opacities are likely infectious. 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 The degree of dilatation is not significantly changed when compared with October 2020 exam. Dictated by: New Villela M.D. on 12/16/2020 at 21:39 Approved by: New Villela M.D. on 12/16/2020 at 21:41
[2020-12-16] MEDS: SODIUM CHLORIDE 0.9% 1,000 ML 1000 ML IV (21:01)
[2020-12-16] MEDS: ONDANSETRON 4 MG/2 ML INJ IV (21:01)
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
[2020-12-16 23:35] LABS: UR Morphine/Opiate cutoff 300 Positive (Negative); Ur Creatinine 20 (Normal); Ur Specific Gravity 1.015 (Normal); Urine Amphetamines Negative (Negative); Urine Barbiturates Negative (Negative); Urine Benzodiazepines Negative (Negative); Urine Cocaine Negative (Negative); Urine MDMA Negative (Negative); Urine Methadone Negative (Negative); Urine Methamphetamines Negative (Negative); Urine Oxycodone Positive (Negative); Urine Phencyclidine Negative (Negative); Urine Tetrahydrocannabinol Negative (Negative); Urine Tricyclic Antidepressant Negative (Negative); Urine pH 5 (Normal)
[2020-12-17] MEDS: AMOXICILLIN/CLAV 875/125 MG 1 TAB PO (00:35)
[2020-12-17] MEDS: methylPREDNISolone 125 MG/2 ML VIAL IV (00:35)
[2020-12-17] MEDS: MAGNESIUM CITRATE 300 ML SOLUTION PO (00:38)
[2020-12-17 00:58] VITALS: BP 142/85; PULSE 82; RESP 20; O2SAT 100
== END 2020-12-17 00:59 | disposition home or self-care (01) ==
PROVIDERS: Emergency Provider Emergency Medicine; PCP Physician Assistant
DX: J18.9 Pneumonia, unspecified organism (principal); K59.03 Drug induced constipation; W57.XXXA Bitten or stung by nonvenomous insect and other nonvenomous arthropods, initial encounter
CPT/HCPCS: 36415; 74177; 80053; 80305; 81003; 83690; 85025; 96361; 96374; 96375; 99284; J2405; J2930; Q9967

== ENCOUNTER 2021-01-08 15:14 | Emergency (ER) | payer OTHER, SELFPAY ==
--- NOTE | 2021-01-08 15:35 | DI.RAD.S_ITS ---
PROCEDURE: XR CHEST 2V INDICATIONS: Patient reports pneumonia not better with increased sob TECHNIQUE: 2 views of the chest were acquired. COMPARISON: None. FINDINGS: Surgical changes and devices: None. Lungs and pleura: Lungs are clear. No pleural effusions or pneumothorax. Mediastinum: Mediastinal contours are normal. Heart size is normal. Bones and chest wall: No suspicious bony abnormalities. Soft tissues appear unremarkable. IMPRESSION: No acute cardiopulmonary process demonstrated radiographically. Dictated by: New Villela M.D. on 01/08/2021 at 15:58 Approved by: New Villela M.D. on 01/08/2021 at 15:58
[2021-01-08 15:36] VITALS: BP 133/65; PULSE 78; RESP 20; TEMP 36.3; O2SAT 98; BMI 30.4
== END 2021-01-08 18:56 | disposition left against medical advice (07) ==
PROVIDERS: Emergency Provider Emergency Medicine; PCP Physician Assistant
DX: J18.9 Pneumonia, unspecified organism (principal)
CPT/HCPCS: 71046; 99281

== ENCOUNTER 2021-01-21 12:14 | Emergency (ER) | payer OTHER, SELFPAY ==
[2021-01-21 12:15] VITALS: BP 125/78; PULSE 85; RESP 20; TEMP 36.7; O2SAT 100; BMI 29.8
--- NOTE | 2021-01-21 12:19 | DI.RAD.S_ITS ---
PROCEDURE: XR CHEST 1V INDICATIONS: flu-like symptoms TECHNIQUE: One view of the chest was acquired. COMPARISON: [facility], CR, XR CHEST 2V, 01/08/2021, 15:44. FINDINGS: Surgical changes and devices: None. Lungs and pleura: Lungs are clear. No pleural effusions or pneumothorax. Mediastinum: Mediastinal contours appear normal. Heart size is normal. Bones and chest wall: No suspicious bony lesions. Overlying soft tissues appear unremarkable. IMPRESSION: No acute cardiopulmonary disease. Dictated by: Rakesh Silvestre M.D. on 01/21/2021 at 13:33 Approved by: Rakesh Silvestre M.D. on 01/21/2021 at 13:33
[2021-01-21 12:46] LABS: Basophils Absolute Auto 0 /uL (0-100); Basophils Percent Auto 0.7 % (0-2); Eosinophils Absolute Auto 100 /uL (0-450); Eosinophils Percent Auto 1.9 % (2-4); Hematocrit 37.6 % (36-46); Hemoglobin 12.1 g/dL (12.0-16.0); Lymphocytes Absolute Auto 1100 /uL (1100-4500); Lymphocytes Percent Auto 15.8 % (25-40); Mean Corpuscular HGB Conc 32.2 % (30-36); Mean Corpuscular Hemoglobin 25.5 PG (26-34); Mean Corpuscular Volume 79.4 fL (80-100); Monocytes Absolute Auto 600 /uL (0-900); Monocytes Percent Auto 8.3 % (3-14); Neutrophils Absolute Auto 5200 /uL (1500-7000); Neutrophils Percent Auto 73.3 % (50-75); Platelet Count 242 X10^3/uL (150-400); Red Blood Cell Count 4.74 X10^6/uL (4.0-5.2); Red Cell Distribution Width 14.8 % (11.6-14.8); White Blood Cell Count 7.1 X10^3/uL (4.5-11.0)
[2021-01-21] MEDS: ONDANSETRON 4 MG/2 ML INJ IV (12:52)
[2021-01-21 12:54] VITALS: PULSE 75; O2SAT 99
[2021-01-21 13:00] VITALS: BP 112/68; PULSE 76; O2SAT 99
[2021-01-21 13:02] LABS: Alanine Aminotransferase 16 IU/L (<35); Albumin 4.4 g/dL (3.5-5.0); Albumin Globulin Ratio 1.4 (1.0-2.8); Alkaline Phosphatase 87 U/L (38-126); Aspartate Aminotransferase 25 IU/L (14-36); BUN Creatinine Ratio 13.8 (6-22); Bilirubin Total 0.2 mg/dL (0.2-1.3); Blood Urea Nitrogen 9 mg/dL (7-17); C-Reactive Protein Quant 2.1 mg/dL (<1.0); Calcium 9.3 mg/dL (8.4-10.2); Carbon Dioxide 25 mmol/L (22-32); Chloride 105 mmol/L (98-107); Creatine Kinase 45 U/L (30-135); Estimated Glomerular Filt Rate > 60.0 mL/min (>60); Globulin 3.2 g/dL (1.7-4.1); Glucose 120 mg/dL (70-100); HEMOLYSIS < 15 (0-50); Lactate Dehydrogenase 438 U/L (313-618); Potassium 3.8 mmol/L (3.4-5.1); Sodium 138 mmol/L (137-145); Total Protein 7.6 g/dL (6.3-8.2)
[2021-01-21 13:11] LABS: COVID19 -Nasal RAPID POSITIVE (Negative)
[2021-01-21 13:13] LABS: NT-proBNP (BNP-Adult 18+) 131 pg/mL (<125); Troponin I < 0.012 ng/mL (0.01-0.034)
[2021-01-21 13:17] LABS: Procalcitonin 0.05 ng/mL (<0.5)
--- NOTE | 2021-01-21 13:23 | ED.GENADULT ---
HPI - General Adult General Chief complaint: Fever Stated complaint: HIGH FEVER, VOMITING, SON TESTED COVID+ Time Seen by Provider: 01/21/21 13:14 Source: patient Mode of arrival: Ambulatory Limitations: no limitations History of Present Illness HPI narrative: Patient is a 35-year-old female who is here for evaluation of approximately 24 hours of fever, vomiting, headache and generally not feeling very well. She states that her son was tested positive for COVID yesterday. She has been around other individuals who have had which she was told were ?allergies ?she is not vaccinated. Has been unable to take any of her normal medications because of the vomiting. Related Data Home Medications Medication Instructions Recorded Confirmed Venlafaxine Hydrochloride (Effexor 75 mg PO BID #0 05/07/10 Xr) morphine 30 mg tablet,extended 30 mg PO Q12H 10/10/20 10/10/20 release oxycodone 10 mg tablet 10 mg PO TID PRN 10/10/20 10/10/20 Previous Rx's Medication Instructions Recorded amoxicillin 875 mg-potassium 1 tab PO BID #20 tab 10/10/20 clavulanate 125 mg tablet (Augmentin) ondansetron 4 mg disintegrating 4 mg PO TID-QID PRN #10 tab 10/10/20 tablet promethazine 12.5 mg rectal 12.5 mg SC Q4-6H PRN #12 each 10/10/20 suppository duloxetine 20 mg capsule,delayed 20 mg PO BID #60 cap 11/19/20 release (Cymbalta) amoxicillin 875 mg-potassium 1 tab PO BID #14 tab 12/17/20 clavulanate 125 mg tablet (Augmentin) promethazine 25 mg tablet 25 mg PO Q4-6H PRN #14 tab 01/21/21 Allergies Allergy/AdvReac Type Severity Reaction Status Date / Time celecoxib [From Celebrex] AdvReac Vomiting Verified 01/21/21 12:40 codeine AdvReac Abdominal Verified 01/21/21 12:40 Pain ketorolac [From Toradol] AdvReac Vomiting Verified 01/21/21 12:40 metoclopramide [From Reglan] AdvReac Verified 01/21/21 12:40 NSAIDS (Non-Steroidal AdvReac Vomiting Verified 01/21/21 12:40 Anti-Inflamma tramadol [From Ultram] AdvReac Verified 01/21/21 12:40 Review of Systems Constitutional Constitutional: Reports fever(s) and Reports headache(s) Eyes Eyes: Reports system reviewed and no additional complaints, except as documented ENT Ears, Nose, Mouth, and Throat: Reports headache(s) Cardiovascular Cardiovascular: Reports system reviewed and no additional complaints, except as documented and Reports dyspnea Respiratory Respiratory: Reports cough and Reports dyspnea Gastrointestinal Gastrointestinal: Reports system reviewed and no additional complaints, except as documented, Reports nausea and Reports vomiting Genitourinary Genitourinary: Reports system reviewed and no additional complaints, except as documented Musculoskeletal Musculoskeletal: Reports as per HPI Integumentary/Breasts Skin/Breast: Reports system reviewed and no additional complaints, except as documented Neurologic Neurologic: Reports headache(s) Psychiatric Psychiatric: Reports system reviewed and no additional complaints, except as documented Hematologic/Lymphatic On Anticoagulants: No Allergic/Immunologic Allergic/Immunologic: Reports system reviewed and no additional complaints, except as documented Patient History Medical History Anxiety Chronic pain Chronic post-traumatic stress disorder Depression Fibromyalgia Social History Smoking Status: Current every day smoker Smoking Status: Current every day smoker tobacco type: cigarettes alcohol intake frequency: 0-2 drinks per day Substance Use Type: marijuana Exam Initial Vital Signs Initial Vital Signs: Vital Signs Temperature 98.1 F 01/21/21 12:15 Pulse Rate 85 01/21/21 12:15 Respiratory Rate 20 01/21/21 12:15 Blood Pressure 125/78 01/21/21 12:15 Pulse Oximetry 100 01/21/21 12:15 Const General: cooperative, healthy appearing and comfortable [facility] Head: normal to inspection and normocephalic Eyes General: appearance normal, both eyes and all related structures Neck Neck: normal visual inspection Resp Effort & Inspection: normal respiratory effort Cardio Rate: regular rate GI Inspection: normal to inspection Skin General: no rashes or lesions noted Neuro General: patient alert, patient awake and patient oriented x3 Extrem General: normal to inspection and capillary refill normal Psych Appearance: grossly normal and well kempt Course Orders Ordered: ED Orders 01/21/21 12:19 XR chest 1V Stat 01/21/21 12:33 C-Reactive Protein Quant Stat COVID19 -Nasal swab/Pre-Proc Stat Complete Blood Count AUTO DIFF Stat Comprehensive Metabolic Panel Stat Ferritin Stat Lactate Dehydrogenase Stat NT-proBNP (BNP-Adult 18+) Stat Procalcitonin Stat Troponin & CK Cardiac Panel Stat 01/21/21 13:23 RT Consult Eval and Treat NOW Discontinued Medications Ondansetron HCl (Ondansetron 4 Mg/2 Ml Inj) 4 mg IV NOW ONE Stop: 01/21/21 12:21 Last Admin: 01/21/21 12:52 Dose: 4 mg Documented by: YVONNE Vital Signs Vital signs: Vital Signs - 8 hr 01/21/21 12:15 01/21/21 12:54 01/21/21 13:00 Temperature 98.1 F Pulse Rate 85 75 76 Respiratory Rate 20 Blood Pressure 125/78 112/68 Pulse Oximetry 100 99 99 01/21/21 13:30 Temperature Pulse Rate 75 Respiratory Rate 18 Blood Pressure 110/70 Pulse Oximetry 99 Medical Decision Making Lab Data Lab results reviewed: Yes I reviewed the patient's lab results. Result diagrams: 01/21/21 12:33 01/21/21 12:33 Labs: Lab Results 01/21/21 01/21/21 01/21/21 Range/Units 12:33 12:33 12:33 WBC 7.1 (4.5-11.0) X10^3/uL RBC 4.74 (4.0-5.2) X10^6/uL Hgb 12.1 (12.0-16.0) g/dL Hct 37.6 (36-46) % MCV 79.4 L (80-100) fL MCH 25.5 L (26-34) PG MCHC 32.2 (30-36) % RDW 14.8 (11.6-14.8) % Plt Count 242 (150-400) X10^3/uL Neut % (Auto) 73.3 (50-75) % Lymph % (Auto) 15.8 L (25-40) % Burt % (Auto) 8.3 (3-14) % Eos % (Auto) 1.9 L (2-4) % Baso % (Auto) 0.7 (0-2) % Neut # (Auto) 5200 (1142-9077) /uL Lymph # (Auto) 1100 (8291-3612) /uL Burt # (Auto) 600 (0-900) /uL Eos # (Auto) 100 (0-450) /uL Baso # (Auto) 0 (0-100) /uL Clumped Platelets RBC Morphology Normal morphology Sodium 138 (137-145) mmol/L Potassium 3.8 (3.4-5.1) mmol/L Chloride 105 (98-107) mmol/L Carbon Dioxide 25 (22-32) mmol/L BUN 9 (7-17) mg/dL Creatinine 0.65 (0.52-1.04) mg/dL Estimated GFR > 60.0 (>60) mL/min BUN/Creatinine Ratio 13.8 (6-22) Glucose 120 H (70-100) mg/dL Calcium 9.3 (8.4-10.2) mg/dL Ferritin 24 (6-137) ng/mL Total Bilirubin 0.2 (0.2-1.3) mg/dL AST 25 (14-36) IU/L ALT 16 (<35) IU/L Alkaline Phosphatase 87 (38-126) U/L Lactate Dehydrogenase 438 (313-618) U/L Total Creatine Kinase 45 (30-135) U/L CK-MB (CK-2) TNP CK-MB (CK-2) Rel Index TNP Troponin I < 0.012 (0.01-0.034) ng/mL C-Reactive Protein 2.1 H (<1.0) mg/dL NT-Pro-B Natriuret Pep 131 H (<125) pg/mL Total Protein 7.6 (6.3-8.2) g/dL Albumin 4.4 (3.5-5.0) g/dL Globulin 3.2 (1.7-4.1) g/dL Albumin/Globulin Ratio 1.4 (1.0-2.8) Procalcitonin 0.05 (<0.5) ng/mL SARS-CoV-2 (PCR) Positive H (Negative) Imaging Data Chest x-ray: Radiologist's Impression: [address] [id number] ReportSigned Patient: China Siddiqui EMR#: [id number]: 1985Acct:[id number]/Sex: 35 / FDate of Service: 01/21/21Loc: EDAccession Number: [id number] Procedure: XR chest 1V Ordering Provider: Rom Bernardo D.O. PROCEDURE: XR CHEST 1V INDICATIONS: flu-like symptoms TECHNIQUE: One view of the chest was acquired. COMPARISON: [facility], , XR CHEST 2V, 01/08/2021, 15:44. FINDINGS: Surgical changes and devices: None. Lungs and pleura: Lungs are clear. No pleural effusions or pneumothorax. Mediastinum: Mediastinal contours appear normal. Heart size is normal. Bones and chest wall: No suspicious bony lesions. Overlying soft tissues appear unremarkable. IMPRESSION: No acute cardiopulmonary disease. Dictated by: Rakesh Silvestre M.D. on 01/21/2021 at 13:33 Approved by: Rakesh Silvestre M.D. on 01/21/2021 at 13:33 MDM Narrative Medical decision making narrative: Nontoxic, not hypoxic, not in respiratory distress, is COVID positive. No indication for antibiotics. We did discuss COVID-19 diagnosis. Patient does have a pulse oximeter at home. She was given strict return precautions and follow-up instructions. She expressed understanding and agreement. Discharge Plan Departure Patient Disposition: Home Clinical Impression: COVID-19 Instructions: Coronavirus Disease 2019 Activity Restrictions/Additional Instructions: Your positive today for COVID-19. This means that you need to quarantine yourself for the next 14 days and be symptom-free for 24 hours. Use the albuterol and the spacer at home as needed. Use your nausea medications as needed. Contact your primary provider for follow-up. Return to the emergency department for any new or worsening symptoms Prescriptions: New promethazine 25 mg tablet 25 mg PO Q4-6H PRN (Reason: nausea and vomiting) Qty: 14 RF: 0 No Action Venlafaxine Hydrochloride (Effexor Xr) 75 mg PO BID Qty: 0 RF: 0 morphine 30 mg Tablet Extended Release 30 mg PO Q12H RF: 0 oxycodone 10 mg Tablet 10 mg PO TID PRN (Reason: Pain (Scale Score 7-10)) RF: 0 ondansetron 4 mg tablet,disintegrating 4 mg PO TID-QID PRN (Reason: nausea and vomiting) Qty: 10 RF: 0 amoxicillin-pot clavulanate [Augmentin] 875-125 mg tablet 1 tab PO BID Qty: 20 RF: 0 promethazine 12.5 mg suppository 12.5 mg SC Q4-6H PRN (Reason: nausea and vomiting) Qty: 12 RF: 0 duloxetine [Cymbalta] 20 mg capsule,delayed release(DR/EC) 20 mg PO BID Qty: 60 RF: 0 amoxicillin-pot clavulanate [Augmentin] 875-125 mg tablet 1 tab PO BID Qty: 14 RF: 0 Referrals: Sera Lema [Primary Care Provider] -
[2021-01-21 13:27] LABS: Add Manual Diff / Slide Review SLIDE REVIEW
[2021-01-21 13:28] LABS: RBC Morphology Normal Morphology
[2021-01-21 13:30] VITALS: BP 110/70; PULSE 75; RESP 18; O2SAT 99
[2021-01-21 13:35] LABS: Ferritin 24 ng/mL (6-137)
== END 2021-01-21 13:40 | disposition home or self-care (01) ==
PROVIDERS: Emergency Provider Emergency Medicine; PCP Physician Assistant
DX: U07.1 COVID-19 (principal); R06.00 Dyspnea, unspecified; R51.9 Headache, unspecified; Z20.822 Contact with and (suspected) exposure to COVID-19
CPT/HCPCS: 36415; 71045; 80053; 82550; 82728; 83615; 83880; 84145; 84484; 85025; 86140; 87635; 96374; 99284; C9803; J2405

== ENCOUNTER 2021-01-26 17:45 | Emergency (ER) | payer OTHER, SELFPAY ==
[2021-01-26 17:50] VITALS: BP 120/78; PULSE 88; RESP 20; TEMP 36.3; O2SAT 100; BMI 29.7
== END 2021-01-26 19:00 | disposition left against medical advice (07) ==
PROVIDERS: Emergency Provider Emergency Medicine; PCP Physician Assistant
CPT/HCPCS: 99281

== ENCOUNTER 2021-02-05 19:53 | Emergency (ER) | payer OTHER, SELFPAY ==
[2021-02-05 20:06] VITALS: BP 120/75; PULSE 68; RESP 14; TEMP 36.3; O2SAT 98; BMI 29.2
== END 2021-02-05 20:22 | disposition left against medical advice (07) ==
PROVIDERS: Emergency Provider Emergency Medicine; PCP Physician Assistant
CPT/HCPCS: 99281

== ENCOUNTER 2021-03-18 19:07 | Emergency (ER) | payer OTHER, SELFPAY ==
[2021-03-18 19:18] VITALS: BP 123/81; PULSE 82; RESP 18; TEMP 36.6; O2SAT 100; BMI 29.5
--- NOTE | 2021-03-18 19:27 | DI.RAD.S_ITS ---
PROCEDURE: XR CHEST 2V INDICATIONS: fever TECHNIQUE: 2 views of the chest were acquired. COMPARISON: [facility], CR, XR CHEST 1V, 01/21/2021, 12:24. FINDINGS: Surgical changes and devices: None. Lungs and pleura: Lungs are clear. No pleural effusions or pneumothorax. Mediastinum: Mediastinal contours are normal. Heart size is normal. Bones and chest wall: No suspicious bony abnormalities. Soft tissues appear unremarkable. IMPRESSION: No acute cardiopulmonary abnormality. Dictated by: Adrian Sims M.D. on 03/18/2021 at 20:21 Approved by: Adrian Sims M.D. on 03/18/2021 at 20:21
[2021-03-18 19:53] LABS: COVID19 -Nasal RAPID Negative (Negative)
--- NOTE | 2021-03-18 21:50 | ED_ITS ---
HPI - Nausea/Vomiting/Diarrhea General Chief complaint: Fever Stated complaint: Fever,Migraine,Vomiting, Feels Like Pneumonia Time Seen by Provider: 03/18/21 21:44 Source: patient Mode of arrival: Ambulatory History of Present Illness HPI Narrative: Patient states drove her here tonight. Complains 4 days of nausea and vomiting with also complaints of fever body aches, feels like she has COVID infection again. Complains dyspnea. Her migraine headache started again as well. Started 4 days ago. Denies any sick contacts. History hysterectomy. Unable to take her home medications. Vital signs reviewed. No tachycardia no tachypnea no hypoxia. No hypotension. Patient states her headache/migraine not different for past. Related Data Home Medications Medication Instructions Recorded Confirmed Venlafaxine Hydrochloride (Effexor 75 mg PO BID #0 05/07/10 Xr) morphine 30 mg tablet,extended 30 mg PO Q12H 10/10/20 10/10/20 release oxycodone 10 mg tablet 10 mg PO TID PRN 10/10/20 10/10/20 Previous Rx's Medication Instructions Recorded amoxicillin 875 mg-potassium 1 tab PO BID #20 tab 10/10/20 clavulanate 125 mg tablet (Augmentin) ondansetron 4 mg disintegrating 4 mg PO TID-QID PRN #10 tab 10/10/20 tablet promethazine 12.5 mg rectal 12.5 mg MN Q4-6H PRN #12 each 10/10/20 suppository duloxetine 20 mg capsule,delayed 20 mg PO BID #60 cap 11/19/20 release (Cymbalta) amoxicillin 875 mg-potassium 1 tab PO BID #14 tab 12/17/20 clavulanate 125 mg tablet (Augmentin) promethazine 25 mg tablet 25 mg PO Q4-6H PRN #14 tab 01/21/21 Allergies Allergy/AdvReac Type Severity Reaction Status Date / Time celecoxib [From Celebrex] AdvReac Vomiting Verified 03/18/21 19:18 codeine AdvReac Abdominal Verified 03/18/21 19:18 Pain ketorolac [From Toradol] AdvReac Vomiting Verified 03/18/21 19:18 metoclopramide [From Reglan] AdvReac Verified 03/18/21 19:18 NSAIDS (Non-Steroidal AdvReac Vomiting Verified 03/18/21 19:18 Anti-Inflamma tramadol [From Ultram] AdvReac Verified 03/18/21 19:18 Review of Systems Review of Systems Narrative: GENERAL: Complainschills, fatigue, malaise, fever, sweats. HEENT: Denies sinus pain, ear pain, sore throat RESPIRATORY: Complains dyspnea, cough CARDIOVASCULAR: Denies chest pain, palpitations GASTROINTESTINAL: Complains nausea, vomiting, denies abdominal pain : Denies dysuria, frequency, hematuria MUSCULOSKELETAL: Complainsmuscle or bony pain SKIN: Denies rash, skin lesions NEUROLOGIC: Denies weakness, numbness, complains of migraine headache ROS Unobtainable: All systems reviewed & are unremarkable except as noted in HPI and below Patient History Medical History Anxiety Chronic pain Chronic post-traumatic stress disorder Depression Fibromyalgia Social History Smoking Status: Current every day smoker Smoking Status: Current every day smoker tobacco type: cigarettes alcohol intake frequency: holidays/special occasions only Substance Use Type: marijuana Exam Narrative Exam Narrative: GENERAL: in no distress, not toxic not dyspneic HEAD: Normocephalic. EYES: Pupils equal round No scleral icterus. No injection no discharge ENT: Mucous membranes moist. NECK: Trachea midline. CARDIOVASCULAR: Regular rate and rhythm without murmurs RESPIRATORY: Clear to auscultation. Breath sounds equal bilaterally. No wheezes, rales, or rhonchi. GASTROINTESTINAL: Abdomen soft, non-tender EXTREMITIES: No gross deformities. BACK: No flank tenderness. NEURO: AOx4. SKIN: Warm and dry PSYCH: Not anxious, is cooperative Initial Vital Signs Initial Vital Signs: Vital Signs Temperature 97.9 F 03/18/21 19:18 Pulse Rate 82 03/18/21 19:18 Respiratory Rate 18 03/18/21 19:18 Blood Pressure 123/81 03/18/21 19:18 Pulse Oximetry 100 03/18/21 19:18 Course Course Course Narrative: No new issues during course of stay. Improvement with medications and IV fluids Orders Ordered: Discontinued Medications Dexamethasone (Dexamethasone 10 Mg/Ml Vial) 10 mg IV NOW ONE Stop: 03/18/21 22:52 Last Admin: 03/18/21 23:28 Dose: 10 mg Documented by: ATAYLOR Diphenhydramine HCl (Diphenhydramine 50 Mg/Ml Vial) 25 mg IV NOW ONE Stop: 03/18/21 21:49 Last Admin: 03/18/21 22:14 Dose: 25 mg Documented by: MITUL Sodium Chloride (Normal Saline 0.9%) 1,000 mls @ 1,000 mls/hr IV BOLUS ONE Stop: 03/18/21 22:47 Last Admin: 03/18/21 22:13 Dose: 1,000 mls/hr Documented by: MITUL Morphine Sulfate (Morphine 4 Mg/Ml Inj) 4 mg IV NOW ONE Stop: 03/18/21 21:49 Last Admin: 03/18/21 22:14 Dose: 4 mg Documented by: MITUL Ondansetron HCl (Ondansetron 4 Mg/2 Ml Inj) 4 mg IV NOW ONE Stop: 03/18/21 21:49 Last Admin: 03/18/21 22:13 Dose: 4 mg Documented by: MITUL Reevaluation(s) Reevaluation #1: Patient feeling much better after morphine and Zofran and Benadryl and IV fluids. Headache improved. Nausea improved Time: 22:47 Vital Signs Vital signs: Vital Signs - 8 hr 03/18/21 19:18 03/18/21 22:00 03/18/21 22:31 Temperature 97.9 F Pulse Rate 82 76 71 Respiratory Rate 18 16 16 Blood Pressure 123/81 110/72 116/75 Pulse Oximetry 100 100 99 MDM - Nausea/Vomiting/Diarrhea Differential Diagnosis Differential diagnosis: Likely other (Viral gastroenteritis) Lab Data Labs: Lab Results 03/18/21 Range/Units 19:20 SARS-CoV-2 (PCR) Negative (Negative) Imaging Data Chest x-ray: Radiologist's Impression: [address] [address] XRay Report Signed Patient: China Siddiqui MR#: [id number] : 1985 Acct:[id number] Age/Sex: 35 / F Date of Service: 03/18/21 Loc: ED Accession Number: [id number] ?? Procedure: XR chest 2V Ordering Provider: Elías Lewis MD PROCEDURE:? XR CHEST 2V ? INDICATIONS:? fever ? TECHNIQUE:? 2 views of the chest were acquired.? ? COMPARISON:? [facility], CR, XR CHEST 1V, 01/21/2021, 12:24. ? FINDINGS:? ? Surgical changes and devices:? None.? ? Lungs and pleura:? Lungs are clear.? No pleural effusions or pneumothorax.? ? Mediastinum:? Mediastinal contours are normal.? Heart size is normal.? ? Bones and chest wall:? No suspicious bony abnormalities.? Soft tissues appear unremarkable.? ? IMPRESSION:? No acute cardiopulmonary abnormality. ? ? Dictated by: Adrian Sims M.D. on 03/18/2021 at 20:21 ? ? Approved by: Adrian Sims M.D. on 03/18/2021 at 20:21 ? MDM Narrative Medical decision making narrative: Appropriate for discharge home. Exam and laboratory studies and imaging reassuring. Likely viral syndrome. No blood work indicated. Vital signs stable. No fever. Return precautions reviewed with patient. 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 Discharge Plan Departure Patient Disposition: Home Clinical Impression: Viral infection Headache, migraine Qualifiers: Migraine type: unspecified Status migrainosus presence: without status migrainosus Intractability: not intractable Qualified Code(s): G43.909 - Migraine, unspecified, not intractable, without status migrainosus Instructions: DI for Migraine, DI for Viral Upper Respiratory Infection -- Adult Activity Restrictions/Additional Instructions: No driving tonight. Keep well hydrated. Continue home medications. See family doctor next week for recheck. Prescriptions: No Action Venlafaxine Hydrochloride (Effexor Xr) 75 mg PO BID Qty: 0 RF: 0 morphine 30 mg Tablet Extended Release 30 mg PO Q12H RF: 0 oxycodone 10 mg Tablet 10 mg PO TID PRN (Reason: Pain (Scale Score 7-10)) RF: 0 ondansetron 4 mg tablet,disintegrating 4 mg PO TID-QID PRN (Reason: nausea and vomiting) Qty: 10 RF: 0 amoxicillin-pot clavulanate [Augmentin] 875-125 mg tablet 1 tab PO BID Qty: 20 RF: 0 promethazine 12.5 mg suppository 12.5 mg MN Q4-6H PRN (Reason: nausea and vomiting) Qty: 12 RF: 0 duloxetine [Cymbalta] 20 mg capsule,delayed release(DR/EC) 20 mg PO BID Qty: 60 RF: 0 amoxicillin-pot clavulanate [Augmentin] 875-125 mg tablet 1 tab PO BID Qty: 14 RF: 0 promethazine 25 mg tablet 25 mg PO Q4-6H PRN (Reason: nausea and vomiting) Qty: 14 RF: 0 Referrals: Sera Lema [Primary Care Provider] -
[2021-03-18 22:00] VITALS: BP 110/72; PULSE 76; RESP 16; O2SAT 100
[2021-03-18] MEDS: ONDANSETRON 4 MG/2 ML INJ IV (22:13)
[2021-03-18] MEDS: SODIUM CHLORIDE 0.9% 1,000 ML 1000 ML IV (22:13)
[2021-03-18] MEDS: diphenhydrAMINE 50 MG/ML VIAL 25 MG IV (22:14)
[2021-03-18] MEDS: MORPHINE 4 MG/ML INJ IV (22:14)
[2021-03-18 22:31] VITALS: BP 116/75; PULSE 71; RESP 16; O2SAT 99
[2021-03-18] MEDS: DEXAMETHASONE 10 MG/ML VIAL IV (23:28)
[2021-03-18 23:39] VITALS: BP 109/75; PULSE 66; RESP 18; O2SAT 100
== END 2021-03-18 23:40 | disposition home or self-care (01) ==
PROVIDERS: Emergency Provider Emergency Medicine; PCP Physician Assistant
DX: G43.909 Migraine, unspecified, not intractable, without status migrainosus (principal); B34.9 Viral infection, unspecified; R11.2 Nausea with vomiting, unspecified; Z86.16 Personal history of COVID-19
CPT/HCPCS: 71046; 87635; 96374; 96375; 99284; C9803; J1100; J1200; J2270; J2405

== ENCOUNTER 2021-03-25 19:24 | Emergency (ER) | payer OTHER, SELFPAY ==
[2021-03-25 19:31] VITALS: BP 146/84; PULSE 83; RESP 12; TEMP 36.8; O2SAT 100; BMI 29.2
--- NOTE | 2021-03-25 19:39 | ED_ITS ---
HPI - Skin/Abscess/Foreign Bdy General Chief complaint: Fever Stated complaint: fever, rash, hx colonized MRSA Time Seen by Provider: 03/25/21 19:33 Source: patient Mode of arrival: Ambulatory History of Present Illness HPI narrative: 35-year-old female smoker with history of MRSA, headaches, fibromyalgia and chronic pain presents with a chief complaint of concern over small red painful bumps in her groin and pelvic region after shaving recently. She has had extensive bouts of cellulitis and even sepsis and is concerned that she may be heading that way. She has had no systemic findings such as fever, chills nor nausea or vomiting. She denies any bleeding or drainage. She was recently seen by her primary care provider after complaining of mild upper respiratory symptoms including runny nose, nasal congestion, sneezing, occasio nal cough and achiness. She was tested for COVID and told that she had some other viral upper respiratory infection Related Data Home Medications Medication Instructions Recorded Confirmed Venlafaxine Hydrochloride (Effexor 75 mg PO BID #0 05/07/10 Xr) morphine 30 mg tablet,extended 30 mg PO Q12H 10/10/20 10/10/20 release oxycodone 10 mg tablet 10 mg PO TID PRN 10/10/20 10/10/20 Previous Rx's Medication Instructions Recorded amoxicillin 875 mg-potassium 1 tab PO BID #20 tab 10/10/20 clavulanate 125 mg tablet (Augmentin) ondansetron 4 mg disintegrating 4 mg PO TID-QID PRN #10 tab 10/10/20 tablet promethazine 12.5 mg rectal 12.5 mg ME Q4-6H PRN #12 each 10/10/20 suppository duloxetine 20 mg capsule,delayed 20 mg PO BID #60 cap 11/19/20 release (Cymbalta) amoxicillin 875 mg-potassium 1 tab PO BID #14 tab 12/17/20 clavulanate 125 mg tablet (Augmentin) promethazine 25 mg tablet 25 mg PO Q4-6H PRN #14 tab 01/21/21 doxycycline hyclate 100 mg tablet 100 mg PO BID #20 tab 03/25/21 fluconazole 150 mg tablet 150 mg PO Q3D #2 tab 03/25/21 Allergies Allergy/AdvReac Type Severity Reaction Status Date / Time celecoxib [From Celebrex] AdvReac Vomiting Verified 03/25/21 19:35 codeine AdvReac Abdominal Verified 03/25/21 19:35 Pain ketorolac [From Toradol] AdvReac Vomiting Verified 03/25/21 19:35 metoclopramide [From Reglan] AdvReac Verified 03/25/21 19:35 NSAIDS (Non-Steroidal AdvReac Vomiting Verified 03/25/21 19:35 Anti-Inflamma tramadol [From Ultram] AdvReac Verified 03/25/21 19:35 Review of Systems Review of Systems Narrative: GENERAL: Denies chills, fatigue, malaise, fever, sweats. HEENT: Denies sinus pain, ear pain, sore throat, difficulty swallowing, dizziness. RESPIRATORY: Denies dyspnea, cough, wheezing, hemoptysis, sputum. CARDIOVASCULAR: Denies chest pain, palpitations, orthopnea, edema, GASTROINTESTINAL: Denies nausea, vomiting, abdominal pain, diarrhea, consti pation, melena. : Denies dysuria, frequency, incontinence, hematuria, urinary retention. MUSCULOSKELETAL: denies weakness, joint pain, or bony pain SKIN: See HPI NEUROLOGIC: Denies weakness, headache, numbness, change in speech, confusion, seizures, incoordination. PSYCHIATRIC: No concerning psychosocial issues. 12 point review of systems is negative except for those stated above Patient History Medical History Anxiety Chronic pain Chronic post-traumatic stress disorder Depression Fibromyalgia Social History Smoking Status: Current every day smoker Smoking Status: Current every day smoker tobacco type: cigarettes alcohol intake frequency: holidays/special occasions only Substance Use Type: marijuana Exam Narrative Exam Narrative: GENERAL: [35 year old patient appears stated age. Well-developed patient, in mild distress. HEAD: Atraumatic. Normocephalic. EYES: Pupils equal round and reactive. Extraocular motions intact. No scleral icterus. No injection or drainage. ENT: Nose without bleeding, purulent drainage. Throat without erythema, tonsillar hypertrophy or exudate. Airway patent. NECK: Trachea midline. Non tender CARDIOVASCULAR: Regular rate and rhythm without murmurs, gallops, or rubs. RESPIRATORY: Clear to auscultation. Breath sounds equal bilaterally. No wheezes, rales, or rhonchi. GASTROINTESTINAL: Abdomen soft, non-tender, nondistended. EXTREMITIES: No edema or joint tenderness. BACK: Nontender without deformity or crepitance. No flank tenderness. NEURO: AOx3. SKIN: groin examined with female nursing automatic grinder operator at the bedside and patient permission. Multiple small, flat, erythematous lesions noted without induration, fluctuance, or drainage. Most consistent with folliculitis Initial Vital Signs Initial Vital Signs: Vital Signs Temperature 98.3 F 03/25/21 19:31 Pulse Rate 83 03/25/21 19:31 Respiratory Rate 12 03/25/21 19: Blood Pressure 146/84 H 03/25/21 19: Pulse Oximetry 100 03/25/21 19:31 Course Vital Signs Vital signs: Vital Signs - 8 hr 03/25/21 19:31 Temperature 98.3 F Pulse Rate 83 Respiratory Rate 12 Blood Pressure 146/84 H Pulse Oximetry 100 MDM - Skin/Abscess/Foreign Bdy MDM Narrative Medical decision making narrative: Patient has a very reassuring physical exam and history. Her complaints do not include any systemic findings to suggest sepsis. Her exam is free of any lesions with fluctuance or induration that would suggest incision and drainage is appropriate. Her exam and story are most consistent with folliculitis, likely as a consequence of recent personal grooming. Return precautions given and questions have been answered to her [facility] satisfaction Discharge Plan Departure Patient Disposition: Home Clinical Impression: Folliculitis Instructions: DI for Folliculitis Activity Restrictions/Additional Instructions: *You have been diagnosed with [folliculitis] *What to do: *Please continue to take your regular medications as directed. [x ] New medication prescriptions sent to your pharmacy: [[facility] in [place] ] [ ] New medication written as a paper prescription [ ] No new medications given *Please follow up with your primary care provider in 2-3 days, call for an appointment. Let them know you were seen in the Emergency Department and that we ask that you be seen in follow up. We will electronically transmit a record of today's note if your PCP is in our system *If you do not have a primary care provider please contact the [facility] Resource line at [phone]. They will ask some questions about your medical history and help get you set up with a doctor in the community. *Return to Emergency Department if you should have any new, worsening or concerning symptoms, such as [fever greater than 101 F, shaking chills, worsening pain, persistent vomiting or other bothersome symptoms] Prescriptions: New fluconazole 150 mg tablet 150 mg PO Q3D Qty: 2 RF: 0 doxycycline hyclate 100 mg tablet 100 mg PO BID Qty: 20 RF: 0 No Action Venlafaxine Hydrochloride (Effexor Xr) 75 mg PO BID Qty: 0 RF: 0 morphine 30 mg Tablet Extended Release 30 mg PO Q12H RF: 0 oxycodone 10 mg Tablet 10 mg PO TID PRN (Reason: Pain (Scale Score 7-10)) RF: 0 ondansetron 4 mg tablet,disintegrating 4 mg PO TID-QID PRN (Reason: nausea and vomiting) Qty: 10 RF: 0 amoxicillin-pot clavulanate [Augmentin] 875-125 mg tablet 1 tab PO BID Qty: 20 RF: 0 promethazine 12.5 mg suppository 12.5 mg ME Q4-6H PRN (Reason: nausea and vomiting) Qty: 12 RF: 0 duloxetine [Cymbalta] 20 mg capsule,delayed release(DR/EC) 20 mg PO BID Qty: 60 RF: 0 amoxicillin-pot clavulanate [Augmentin] 875-125 mg tablet 1 tab PO BID Qty: 14 RF: 0 promethazine 25 mg tablet 25 mg PO Q4-6H PRN (Reason: nausea and vomiting) Qty: 14 RF: 0 Referrals: Sera Lema [Primary Care Provider] -
== END 2021-03-25 19:48 | disposition home or self-care (01) ==
PROVIDERS: Emergency Provider Emergency Medicine; PCP Physician Assistant
DX: L73.9 Follicular disorder, unspecified (principal)
CPT/HCPCS: 99281

== ENCOUNTER 2021-03-29 22:09 | Emergency (ER) | payer OTHER, SELFPAY ==
[2021-03-29 22:17] VITALS: BP 154/93; PULSE 104; RESP 22; TEMP 37.2; O2SAT 99
--- NOTE | 2021-03-29 22:37 | ED_ITS ---
HPI - Arrhythmia/Palpitations General Chief Complaint: Arrhythmia/Palpitations Stated Complaint: HEART RATE 120 JOINT SWELLING CHEST HURTS Time Seen by Provider: 03/29/21 22:36 Source: patient Mode of arrival: Ambulatory History of Present Illness HPI narrative: PATIENT IS A 35-YEAR-OLD FEMALE WITH HISTORY OF ANXIETY, CHRONIC PAIN, IS CHRONIC PTSD, DEPRESSION, FIBROMYALGIA presenting today with possible reaction to doxycycline. She was seen evaluated here 4 days ago diagnosed with folliculitis is in her pubic hair is concerned today because she may have had a reaction. She says it made her feel really sleepy she is worried that it may have interacted with 1 of her medications. Today she also had some palpitations she felt extremely sweaty and short of breath now has resolved. His she has had chills and sweats for the last few days. Currently afebrile. States that she is colonized with MRSA she previously has been on doxycycline but it causes nausea so she takes Zofran and Phenergan which she has been taking last couple of days. She has previously been on Bactrim but it has caused she was kidneys in the past so she has not taken it. She is no longer having chest pain or shortness of breath. She COVID in January she had a negative COVID test earlier this month she is not vaccinated for COVID. Yesterday she also was wearing a sweatshirt she felt like something bit her on her right deltoid she has new red bumps there. Related Data Home Medications Medication Instructions Recorded Confirmed morphine 30 mg tablet,extended 30 mg PO Q12H 10/10/20 03/29/21 release oxycodone 10 mg tablet 10 mg PO TID PRN 10/10/20 03/29/21 albuterol sulfate 90 mcg/actuation 2 puff INHALATION Q4H PRN 03/29/21 03/29/21 aerosol inhaler iszmvswvbi-bibevlo-wzdxohak 50 1 cap PO Q4-6H PRN 03/29/21 03/29/21 mg-325 mg-40 mg capsule desvenlafaxine succinate 25 mg 25 mg PO DAILY 03/29/21 03/29/21 tablet,extended release 24 hr famotidine 20 mg tablet 20 mg PO BID 03/29/21 03/29/21 hydroxyzine HCl 25 mg tablet 25 mg PO BID PRN 03/29/21 03/29/21 levothyroxine 50 mcg tablet 50 mcg PO DAILY 03/29/21 03/29/21 uvpfug-imprwlcm-acpvnft 1 cap PO TID 03/29/21 03/29/21 20,880-78,300-78,300 unit tablet (Viokace) methylphenidate HCl 36 mg 36 mg PO QAM 03/29/21 03/29/21 tablet,extended release 24 hr promethazine 25 mg tablet 25 mg PO Q4-6H PRN 03/29/21 03/29/21 propranolol 10 mg tablet 10 mg PO PRN PRN 03/29/21 03/29/21 propranolol 60 mg capsule,24 60 mg PO DAILY 03/29/21 03/29/21 hr,extended release Previous Rx's Medication Instructions Recorded promethazine 25 mg tablet 25 mg PO Q4-6H PRN #14 tab 01/21/21 promethazine 25 mg tablet 25 mg PO Q6H PRN #14 tab 03/30/21 sulfamethoxazole 800 1 tab PO BID 7 Days #14 tab 03/30/21 mg-trimethoprim 160 mg tablet (Bactrim DS) Allergies Allergy/AdvReac Type Severity Reaction Status Date / Time celecoxib [From Celebrex] AdvReac Vomiting Verified 03/25/21 19:35 codeine AdvReac Abdominal Verified 03/25/21 19:35 Pain ketorolac [From Toradol] AdvReac Vomiting Verified 03/25/21 19:35 metoclopramide [From Reglan] AdvReac Verified 03/25/21 19:35 NSAIDS (Non-Steroidal AdvReac Vomiting Verified 03/25/21 19:35 Anti-Inflamma tramadol [From Ultram] AdvReac Verified 03/25/21 19:35 Review of Systems Review of Systems ROS Unobtainable: All systems reviewed & are unremarkable except as noted in HPI and below Constitutional Constitutional: Reports body ache(s), Reports chills and Reports fatigue ENT Ears, Nose, Mouth, and Throat: Denies sinus pain and Denies sore throat Cardiovascular Cardiovascular: Reports as per HPI, Reports chest pain, Reports diaphoresis (x1), Denies syncope, Reports rapid heart rate and Denies dyspnea on exertion Respiratory Respiratory: Denies change in phlegm color, Reports cough and Denies dyspnea on exertion Gastrointestinal Gastrointestinal: Reports nausea (With medication) and Denies vomiting Genitourinary Genitourinary: Denies urinary hesitancy and Denies urinary urgency Musculoskeletal Musculoskeletal: Reports myalgias Integumentary/Breasts Skin/Breast: Reports as per HPI and Reports rash Neurologic Neurologic: Denies syncope Endocrine Endocrine: Reports fatigue Patient History Medical History Anxiety Chronic pain Chronic post-traumatic stress disorder Depression Fibromyalgia Social History Smoking Status: Current every day smoker Smoking Status: Current every day smoker tobacco type: cigarettes alcohol intake frequency: holidays/special occasions only Substance Use Type: marijuana Exam Initial Vital Signs Initial Vital Signs: Vital Signs Temperature 98.9 F 03/29/21 22:17 Pulse Rate 104 H 03/29/21 22:17 Respiratory Rate 22 03/29/21 22:17 Blood Pressure 154/93 H 03/29/21 22:17 Pulse Oximetry 99 03/29/21 22:17 GENERAL: anxious well-appearing 35-year-old female HEENT: Head atraumatic,EOMI, pupils reactive, face symmetric, [moist] mucous membranes CARDIOVASCULAR: Regular rate and rhythm without murmurs, rubs or gallops. RESPIRATORY: Breath sounds equal bilaterally, no wheezes rales or rhonchi. ABDOMEN: Soft, nontender. Normoactive bowel sounds all 4 quadrants. No guarding or rebound EXTREMITIES: Normal range of motion, no clubbing or edema. Neurovascularly i ntact NEUROLOGICAL: Alert and oriented x4.Normal gait and speech. SKIN: folliculitis noticed in pubic hair without abscess. Small red areas on deltoid x3, without significant fluctuation or induration Course Orders Ordered: ED Orders 03/29/21 22:58 Complete Blood Count AUTO DIFF Stat Comprehensive Metabolic Panel Stat Lipase Stat Procalcitonin Stat Troponin & CK Cardiac Panel Stat Discontinued Medications Acetaminophen (Acetaminophen 325 Mg Tablet) 975 mg PO NOW ONE Stop: 03/29/21 23:25 Ondansetron HCl (Ondansetron 4 Mg/2 Ml Inj) 4 mg IV NOW ONE Stop: 03/29/21 23:08 Last Admin: 03/29/21 23:18 Dose: 4 mg Documented by: MONE Prochlorperazine (Prochlorperazine 10 Mg/2 Ml Vial) 10 mg IV NOW ONE Stop: 03/30/21 00:28 Last Admin: 03/30/21 00:49 Dose: 10 mg Documented by: BONI Vital Signs Vital signs: Vital Signs - 8 hr 03/29/21 22:17 03/30/21 01:03 Temperature 98.9 F Pulse Rate 104 H 97 H Respiratory Rate 22 16 Blood Pressure 154/93 H 110/54 L Pulse Oximetry 99 99 MDM - Arrhythmia/Palpitations Lab Data Result diagrams: 03/29/21 22:58 03/29/21 22:58 Labs: Lab Results 03/29/21 03/29/21 03/29/21 Range/Units 22:58 22:58 22:58 WBC 12.1 H (4.5-11.0) X10^3/uL RBC 4.64 (4.0-5.2) X10^6/uL Hgb 11.5 L (12.0-16.0) g/dL Hct 36.5 (36-46) % MCV 78.6 L (80-100) fL MCH 24.8 L (26-34) PG MCHC 31.5 (30-36) % RDW 15.3 H (11.6-14.8) % Plt Count 355 (150-400) X10^3/uL Neut % (Auto) 61.2 (50-75) % Lymph % (Auto) 27.2 (25-40) % [place] % (Auto) 8.9 (3-14) % Eos % (Auto) 2.0 (2-4) % Baso % (Auto) 0.7 (0-2) % Neut # (Auto) 7400 H (4842-2266) /uL Lymph # (Auto) 3300 (1525-1222) /uL [place] # (Auto) 1100 H (0-900) /uL Eos # (Auto) 200 (0-450) /uL Baso # (Auto) 100 (0-100) /uL Sodium 138 (137-145) mmol/L Potassium 3.1 L (3.4-5.1) mmol/L Chloride 103 (98-107) mmol/L Carbon Dioxide 29 (22-32) mmol/L BUN 9 (7-17) mg/dL Creatinine 0.94 (0.52-1.04) mg/dL Estimated GFR > 60.0 (>60) mL/min BUN/Creatinine Ratio 9.6 (6-22) Glucose 102 H (70-100) mg/dL Calcium 9.3 (8.4-10.2) mg/dL Total Bilirubin 0.4 (0.2-1.3) mg/dL AST 39 H (14-36) IU/L ALT 19 (<35) IU/L Alkaline Phosphatase 75 (38-126) U/L Total Creatine Kinase 365 H (30-135) U/L CK-MB (CK-2) 2.51 H (<2.37) ng/mL CK-MB (CK-2) Rel Index 0.7 L (1.5-5.0) % Troponin I < 0.012 (0.01-0.034) ng/mL Total Protein 7.5 (6.3-8.2) g/dL Albumin 4.4 (3.5-5.0) g/dL Globulin 3.1 (1.7-4.1) g/dL Albumin/Globulin Ratio 1.4 (1.0-2.8) Lipase 19 L (23-300) U/L Procalcitonin 0.08 (<0.5) ng/mL ECG Data Interpretation: Rhythm rate 93 WI interval 152 QRS [address] changes or T-wave inversions MDM Narrative Medical decision making narrative: Patient has variety of complaints. Has episode of chest pain palpitations diaphoresis today. EKG and blood work is overall reassuring. Exam shows folliculitis but no significant abscess or rash. If she is freezing cold in the emergency department per remains afebrile no s igns of severe infection or sepsis. Possible interaction with doxycycline, certainly no sign of anaphylaxis or hives. She previously has had problems with Bactrim saying it did something to her kidneys however kidney function today looks well she is willing to retry Bactrim. Patient started dry heaving she is given Zofran and Compazine. She is asking and requesting to go home she would rather be at home. She was previously taking Phenergan at home for nausea will defer new prescription for Phenergan and new prescription for Bactrim. Discharge Plan Departure Patient Disposition: Home Clinical Impression: Folliculitis Medication adverse effect Qualifiers: Encounter type: initial encounter Qualified Code(s): T50.905A - Adverse effect of unspecified drugs, medicaments and biological substances, initial encounter Instructions: Folliculitis Activity Restrictions/Additional Instructions: At this time his possibly had a reaction to doxycycline. However it does not seem to be interacting with your other medications. Nonetheless we will switch it to a different medication Bactrim which she had previously had and are willing to try again. Increase fluids as tolerated. Continue to monitor around for any worsening. May apply Neosporin or antibiotic ointment 1-2 times daily to specific area MEDICATIONS:Sent to [facility] in [place] Phenergan 25 mg every 6 hours if needed for nausea or vomiting Bactrim 1 tablet twice a day for 7 days stop taking doxycycline Follow-up with primary care provider in 2-3 days Return to ED if you should have any increasing redness swelling fevers chest pain palpitations persistent vomiting or any new or worsening symptoms Prescriptions: New sulfamethoxazole-trimethoprim [Bactrim DS] 800-160 mg tablet 1 tab PO BID 7 Days Qty: 14 RF: 0 promethazine 25 mg tablet 25 mg PO Q6H PRN (Reason: nausea and vomiting) Qty: 14 RF: 0 No Action morphine 30 mg Tablet Extended Release 30 mg PO Q12H RF: 0 oxycodone 10 mg Tablet 10 mg PO TID PRN (Reason: Pain (Scale Score 7-10)) RF: 0 promethazine 25 mg tablet 25 mg PO Q4-6H PRN (Reason: nausea and vomiting) Qty: 14 RF: 0 propranolol 60 mg Capsule,Extended Release 24 Hr 60 mg PO DAILY RF: 0 propranolol 10 mg Tablet 10 mg PO PRN PRN (Reason: Anxiety) RF: 0 famotidine 20 mg Tablet 20 mg PO BID RF: 0 levothyroxine 50 mcg Tablet 50 mcg PO DAILY RF: 0 promethazine 25 mg Tablet 25 mg PO Q4-6H PRN (Reason: Nausea) RF: 0 oztleapbvf-rouqkbt-gfzjagoc 50-325-40 mg Capsule 1 cap PO Q4-6H PRN (Reason: Headache) RF: 0 hydroxyzine HCl 25 mg Tablet 25 mg PO BID PRN (Reason: Anxiety) RF: 0 albuterol sulfate 90 mcg/actuation Hfa Aerosol Inhaler 2 puff INHALATION Q4H PRN (Reason: dysp) RF: 0 methylphenidate HCl 36 mg Tablet Extended Release 24hr 36 mg PO QAM RF: 0 Viokace 20,880-78,300- 78,300 unit Tablet 1 cap PO TID RF: 0 desvenlafaxine succinate 25 mg Tablet Extended Release 24 Hr 25 mg PO DAILY RF: 0 Referrals: Sera Lema [Primary Care Provider] -
[2021-03-29 23:18] LABS: Hematocrit 36.5 % (36-46); Hemoglobin 11.5 g/dL (12.0-16.0); Mean Corpuscular Volume 78.6 fL (80-100); Red Blood Cell Count 4.64 X10^6/uL (4.0-5.2); White Blood Cell Count 12.1 X10^3/uL (4.5-11.0)
[2021-03-29] MEDS: ONDANSETRON 4 MG/2 ML INJ IV (23:18)
[2021-03-29 23:19] LABS: Mean Corpuscular Hemoglobin 24.8 PG (26-34)
[2021-03-29 23:23] LABS: Mean Corpuscular HGB Conc 31.5 % (30-36); Platelet Count 355 X10^3/uL (150-400); Red Cell Distribution Width 15.3 % (11.6-14.8)
[2021-03-29 23:25] LABS: Add Manual Diff / Slide Review NO; Basophils Percent Auto 0.7 % (0-2); Lymphocytes Percent Auto 27.2 % (25-40); Monocytes Percent Auto 8.9 % (3-14); Neutrophils Percent Auto 61.2 % (50-75)
[2021-03-29 23:27] LABS: Lymphocytes Absolute Auto 3300 /uL (1100-4500); Monocytes Absolute Auto 1100 /uL (0-900); Neutrophils Absolute Auto 7400 /uL (1500-7000)
[2021-03-29 23:28] LABS: Basophils Absolute Auto 100 /uL (0-100); Eosinophils Absolute Auto 200 /uL (0-450)
[2021-03-29 23:41] LABS: Alanine Aminotransferase 19 IU/L (<35); Albumin 4.4 g/dL (3.5-5.0); Albumin Globulin Ratio 1.4 (1.0-2.8); Alkaline Phosphatase 75 U/L (38-126); Aspartate Aminotransferase 39 IU/L (14-36); BUN Creatinine Ratio 9.6 (6-22); Bilirubin Total 0.4 mg/dL (0.2-1.3); Blood Urea Nitrogen 9 mg/dL (7-17); Calcium 9.3 mg/dL (8.4-10.2); Carbon Dioxide 29 mmol/L (22-32); Chloride 103 mmol/L (98-107); Creatine Kinase 365 U/L (30-135); Estimated Glomerular Filt Rate > 60.0 mL/min (>60); Globulin 3.1 g/dL (1.7-4.1); Glucose 102 mg/dL (70-100); HEMOLYSIS < 15 (0-50); Lipase 19 U/L (23-300); Potassium 3.1 mmol/L (3.4-5.1); Sodium 138 mmol/L (137-145); Total Protein 7.5 g/dL (6.3-8.2)
[2021-03-29 23:51] LABS: Troponin I < 0.012 ng/mL (0.01-0.034)
[2021-03-29 23:57] LABS: Procalcitonin 0.08 ng/mL (<0.5)
[2021-03-30 00:11] LABS: CKMB % Relative Index 0.7 % (1.5-5.0); Creatine Kinase MB 2.51 ng/mL (<2.37)
[2021-03-30] MEDS: PROCHLORPERAZINE 10 MG/2 ML VIAL IV (00:49)
[2021-03-30 01:03] VITALS: BP 110/54; PULSE 97; RESP 16; O2SAT 99
== END 2021-03-30 01:04 | disposition home or self-care (01) ==
PROVIDERS: Emergency Provider Emergency Medicine; PCP Physician Assistant
DX: L73.9 Follicular disorder, unspecified (principal); R00.2 Palpitations; T50.905A Adverse effect of unspecified drugs, medicaments and biological substances, initial encounter
CPT/HCPCS: 36415; 80053; 82550; 82553; 83690; 84145; 84484; 85025; 93005; 93010; 96374; 96375; 99284; J0780; J2405

== ENCOUNTER 2021-05-22 02:57 | Emergency (ER) | payer OTHER, SELFPAY ==
[2021-05-22 03:13] VITALS: BP 117/57; PULSE 79; RESP 18; TEMP 36.2; O2SAT 100; BMI 29.6
--- NOTE | 2021-05-22 04:38 | ED.ALLEREA ---
HPI - Allergic Reaction General Chief complaint: Allergic Reaction Stated complaint: confusion, throwing up, loopy Time Seen by Provider: 05/22/21 04:21 Source: patient Mode of arrival: Ambulatory Limitations: no limitations History of Present Illness HPI narrative: 36-year-old woman with a complex medical history including anxiety, chronic pain with chronic opioid management, porphyria, Rljsiex-Pgcbb-Bvpon syndrome, depression, chronic PTSD, and fibromyalgia presents complaining of general malaise. She states 4 days ago she was seen at [facility] complaining of a weird smell in her nose. She wanted to be tested for COVID, she was COVID negative. They felt that she had a sinus infection and she was started on Augmentin. All of the symptoms have gotten worse since being on the Augmentin. She still complains of sinus fullness but has not noticed any discharge in never noted fever. She does not describe significant headaches however her review of systems is otherwise markedly positive. She has headaches, weakness, pain everywhere, chest pain, abdominal pain, constipation, she feels short of breath she has worsening rashes specifically points out new bruises over her abdomen and red rash under her breasts multiple skin lesions. She describes weakness and notes that even though she recently took her usual pain medications they made no difference at all in her chronic overall pain and myalgias. In reading through previous notes it seems like the large majority of the chronic complaints that she has have been recurrent and treated with various medications none of which have seemed to influence her pain much. She notes that she has had sepsis at some point in the past and states that it feels much the way she feels currently. Related Data Home Medications Medication Instructions Recorded Confirmed morphine 30 mg tablet,extended 30 mg PO Q12H 10/10/20 03/29/21 release oxycodone 10 mg tablet 10 mg PO TID PRN 10/10/20 03/29/21 albuterol sulfate 90 mcg/actuation 2 puff INHALATION Q4H PRN 03/29/21 03/29/21 aerosol inhaler qtxerbyofl-wnvveow-jbhxkhkj 50 1 cap PO Q4-6H PRN 03/29/21 03/29/21 mg-325 mg-40 mg capsule desvenlafaxine succinate 25 mg 25 mg PO DAILY 03/29/21 03/29/21 tablet,extended release 24 hr famotidine 20 mg tablet 20 mg PO BID 03/29/21 03/29/21 hydroxyzine HCl 25 mg tablet 25 mg PO BID PRN 03/29/21 03/29/21 levothyroxine 50 mcg tablet 50 mcg PO DAILY 03/29/21 03/29/21 zmwzmk-wpndtuqy-kxfxauh 1 cap PO TID 03/29/21 03/29/21 20,880-78,300-78,300 unit tablet (Viokace) methylphenidate HCl 36 mg 36 mg PO QAM 03/29/21 03/29/21 tablet,extended release 24 hr promethazine 25 mg tablet 25 mg PO Q4-6H PRN 03/29/21 03/29/21 propranolol 10 mg tablet 10 mg PO PRN PRN 03/29/21 03/29/21 propranolol 60 mg capsule,24 60 mg PO DAILY 03/29/21 03/29/21 hr,extended release Previous Rx's Medication Instructions Recorded promethazine 25 mg tablet 25 mg PO Q4-6H PRN #14 tab 01/21/21 promethazine 25 mg tablet 25 mg PO Q6H PRN #14 tab 03/30/21 Allergies Allergy/AdvReac Type Severity Reaction Status Date / Time celecoxib [From Celebrex] AdvReac Vomiting Verified 03/25/21 19:35 codeine AdvReac Abdominal Verified 03/25/21 19:35 Pain ketorolac [From Toradol] AdvReac Vomiting Verified 03/25/21 19:35 metoclopramide [From Reglan] AdvReac Verified 03/25/21 19:35 NSAIDS (Non-Steroidal AdvReac Vomiting Verified 03/25/21 19:35 Anti-Inflamma tramadol [From Ultram] AdvReac Verified 03/25/21 19:35 Review of Systems Review of Systems Narrative: Remainder of complete review of systems is otherwise unremarkable except for that included in the HPI. Patient History Medical History (Updated 05/22/21 @ 05:41 by Yohana Chaudhry MD) Anxiety Charcot Rebecca Tooth muscular atrophy Chronic pain Chronic post-traumatic stress disorder Depression Fibromyalgia Porphyria Social History Smoking Status: Current every day smoker Smoking Status: Current every day smoker tobacco type: cigarettes alcohol intake frequency: holidays/special occasions only Substance Use Type: marijuana Exam Narrative Exam Narrative: General: Chronically ill-appearing with dramatic affect pain behaviors. Able to give a complete and coherent history. Well-nourished well-developed HEENT: Moist mucous membranes, normal sclera with reactive pupils, Respiratory: Lungs are clear to auscultation, no wheezing no rales no rhonchi. Full and symmetrical air movement Cardiac: Regular rate and rhythm no murmurs no bruits Abdomen: Soft, nontender, good bowel tones, no flank pain Skin: Warm and dry, 2 bruises on the upper abdomen 1 under each breast that appear to dose to 3-day-old. The erythema that she describes under her breasts I am not appreciating. She has multiple skin lesions that she points to as newly developed all of which look like they are in various stages of healing and look more like obsessive picking at lesions rather than new findings Neurologic: Grossly neurologically intact with no obvious asymmetries or abnormalities Psych: Cooperative, poor overall insight but good eye contact and fluent speech patterns Initial Vital Signs Initial Vital Signs: Vital Signs Temperature 97.2 F L 05/22/21 03:13 Pulse Rate 79 05/22/21 03:13 Respiratory Rate 18 05/22/21 03:13 Blood Pressure 117/57 L 05/22/21 03:13 Pulse Oximetry 100 05/22/21 03:13 Course Orders Ordered: ED Orders 05/22/21 04:50 Complete Blood Count AUTO DIFF Stat Comprehensive Metabolic Panel Stat 05/22/21 05:22 COVID19 -Nasal swab/Pre-Proc Stat Urine Drug Screen, Rapid Stat Sodium Chloride (Normal Saline 0.9%) 1,000 mls @ 1,000 mls/hr IV BOLUS ONE Stop: 05/22/21 05:44 Last Admin: 05/22/21 05:10 Dose: 1,000 mls/hr Documented by: LENARD Discontinued Medications Ondansetron HCl (Ondansetron 4 Mg/2 Ml Inj) 4 mg IV NOW ONE Stop: 05/22/21 04:46 Last Admin: 05/22/21 05:10 Dose: 4 mg Documented by: LENARD Vital Signs Vital signs: Vital Signs - 8 hr 05/22/21 03:13 Temperature 97.2 F L Pulse Rate 79 Respiratory Rate 18 Blood Pressure 117/57 L Pulse Oximetry 100 MDM - Allergic Reaction Lab Data Lab results narrative: She does have a mild leukocytosis help cover she does not have a significant left shift. Result diagrams: 05/22/21 04:50 05/22/21 04:50 Labs: Lab Results 05/22/21 05/22/21 Range/Units 04:50 04:50 WBC 16.8 H (4.5-11.0) X10^3/uL RBC 5.11 (4.0-5.2) X10^6/uL Hgb 13.0 (12.0-16.0) g/dL Hct 39.7 (36-46) % MCV 77.7 L (80-100) fL MCH 25.4 L (26-34) PG MCHC 32.7 (30-36) % RDW 14.7 (11.6-14.8) % Plt Count 299 (150-400) X10^3/uL Neut % (Auto) 72.2 (50-75) % Lymph % (Auto) 19.9 L (25-40) % [place] % (Auto) 5.2 (3-14) % Eos % (Auto) 1.6 L (2-4) % Baso % (Auto) 1.1 (0-2) % Neut # (Auto) 36058 H (7875-1513) /uL Lymph # (Auto) 3400 (4038-1375) /uL [place] # (Auto) 900 (0-900) /uL Eos # (Auto) 300 (0-450) /uL Baso # (Auto) 200 H (0-100) /uL Sodium 138 (137-145) mmol/L Potassium 3.8 (3.4-5.1) mmol/L Chloride 99 (98-107) mmol/L Carbon Dioxide 30 (22-32) mmol/L BUN 11 (7-17) mg/dL Creatinine 0.85 (0.52-1.04) mg/dL Estimated GFR > 60.0 (>60) mL/min BUN/Creatinine Ratio 12.9 (6-22) Glucose 84 (70-100) mg/dL Calcium 9.7 (8.4-10.2) mg/dL Total Bilirubin 0.7 (0.2-1.3) mg/dL AST 50 H (14-36) IU/L ALT 17 (<35) IU/L Alkaline Phosphatase 93 (38-126) U/L Total Protein 8.7 H (6.3-8.2) g/dL Albumin 5.0 (3.5-5.0) g/dL Globulin 3.7 (1.7-4.1) g/dL Albumin/Globulin Ratio 1.4 (1.0-2.8) Point of Care Testing Test Results Negative Urine Dip Bedside Urine Glucose Negative Bedside Urine Bilirubin - Negative Bedside Urine Ketone - Negative Urine Specific [place] 1.010 Bedside Urine Occult Blood - Negative Bedside Urine pH 6.0 Bedside Urine Protein - Negative Bedside Urine Urobilinogen - Negative Bedside Urine Nitrite - Negative Bedside Urine Leukocytes - Negative Esterase MDM Narrative Medical decision making narrative: 36-year-old woman with multiple medical complaints bleeding that she is having an allergic reaction to Augmentin that was started for a sinus infection. Her symptoms of a sinus infection that warranted antibiotics were apparently a sense of burning trash smell in her nose. She does not have a fever, does not describe nasal discharge, does not describe facial pain, just headache and feeling that she was hit by a bat all over. She wanted to switch antibiotics and I explained to her that I did not believe that she needed the 1st round of antibiotics. She insisted that she ?had to work? and had chronic MRSA as well as chronic recurring folliculitis. I did point out to her that each of these were in fact chronic and she did not have any skin findings it looked like acute infection. She again pointed to the rash all over her abdomen that I was not able to fully appreciate. When she wanted to know what I would do to fix her, I explained that there were some things I am not able to completely fix and I understand that suffering is difficult. Additional COVID testing was offered, but she stated that she had a negative COVID test 2 days ago. She is clearly very frustrated with fact that I could not fix her today, and I was not inclined to give her additional IV narcotics to help with her overall body pain or additional antibiotics for an infection I was unable to fully appreciate or document. She did request a note for work and reiterated yet again that she ?has to work? and is very busy working 2 jobs. A work note for today is given. Discharge Plan Departure Patient Disposition: Home Clinical Impression: Myalgia, Nausea & vomiting Instructions: DI for Viral Syndrome Activity Restrictions/Additional Instructions: I am sorry that you are suffering somewhat with your current symptoms I am reassured with your blood work today. I suspect that you have a virus which is causing the myalgias and that may be responsible for the unpleasant smell in your nose. At this point I do not see any clinical evidence for an acute sinusitis that would require antibiotics. I would encourage you to stop your current amoxicillin/clavulanate if you feel that it is making your symptoms worse. Prescriptions: No Action morphine 30 mg Tablet Extended Release 30 mg PO Q12H RF: 0 oxycodone 10 mg Tablet 10 mg PO TID PRN (Reason: Pain (Scale Score 7-10)) RF: 0 promethazine 25 mg tablet 25 mg PO Q4-6H PRN (Reason: nausea and vomiting) Qty: 14 RF: 0 propranolol 60 mg Capsule,Extended Release 24 Hr 60 mg PO DAILY RF: 0 propranolol 10 mg Tablet 10 mg PO PRN PRN (Reason: Anxiety) RF: 0 famotidine 20 mg Tablet 20 mg PO BID RF: 0 levothyroxine 50 mcg Tablet 50 mcg PO DAILY RF: 0 promethazine 25 mg Tablet 25 mg PO Q4-6H PRN (Reason: Nausea) RF: 0 kslipbfhyr-uivdrda-evdkouya 50-325-40 mg Capsule 1 cap PO Q4-6H PRN (Reason: Headache) RF: 0 hydroxyzine HCl 25 mg Tablet 25 mg PO BID PRN (Reason: Anxiety) RF: 0 albuterol sulfate 90 mcg/actuation Hfa Aerosol Inhaler 2 puff INHALATION Q4H PRN (Reason: dysp) RF: 0 methylphenidate HCl 36 mg Tablet Extended Release 24hr 36 mg PO QAM RF: 0 Viokace 20,880-78,300- 78,300 unit Tablet 1 cap PO TID RF: 0 desvenlafaxine succinate 25 mg Tablet Extended Release 24 Hr 25 mg PO DAILY RF: 0 promethazine 25 mg tablet 25 mg PO Q6H PRN (Reason: nausea and vomiting) Qty: 14 RF: 0 Referrals: Sera Lema [Primary Care Provider] - Stand Alone Forms: Work Release Note
[2021-05-22 05:00] LABS: Add Manual Diff / Slide Review NO; Basophils Absolute Auto 200 /uL (0-100); Basophils Percent Auto 1.1 % (0-2); Eosinophils Absolute Auto 300 /uL (0-450); Eosinophils Percent Auto 1.6 % (2-4); Hematocrit 39.7 % (36-46); Lymphocytes Absolute Auto 3400 /uL (1100-4500); Lymphocytes Percent Auto 19.9 % (25-40); Mean Corpuscular HGB Conc 32.7 % (30-36); Mean Corpuscular Hemoglobin 25.4 PG (26-34); Mean Corpuscular Volume 77.7 fL (80-100); Monocytes Absolute Auto 900 /uL (0-900); Monocytes Percent Auto 5.2 % (3-14); Neutrophils Absolute Auto 12100 /uL (1500-7000); Neutrophils Percent Auto 72.2 % (50-75); Platelet Count 299 X10^3/uL (150-400); Red Blood Cell Count 5.11 X10^6/uL (4.0-5.2); Red Cell Distribution Width 14.7 % (11.6-14.8); White Blood Cell Count 16.8 X10^3/uL (4.5-11.0)
[2021-05-22 05:08] LABS: Alanine Aminotransferase 17 IU/L (<35); Albumin Globulin Ratio 1.4 (1.0-2.8); Alkaline Phosphatase 93 U/L (38-126); Aspartate Aminotransferase 50 IU/L (14-36); BUN Creatinine Ratio 12.9 (6-22); Bilirubin Total 0.7 mg/dL (0.2-1.3); Blood Urea Nitrogen 11 mg/dL (7-17); Calcium 9.7 mg/dL (8.4-10.2); Carbon Dioxide 30 mmol/L (22-32); Chloride 99 mmol/L (98-107); Estimated Glomerular Filt Rate > 60.0 mL/min (>60); Globulin 3.7 g/dL (1.7-4.1); Glucose 84 mg/dL (70-100); Sodium 138 mmol/L (137-145); Total Protein 8.7 g/dL (6.3-8.2)
[2021-05-22 05:09] LABS: HEMOLYSIS 67 (0-50); Potassium 3.8 mmol/L (3.4-5.1)
[2021-05-22] MEDS: ONDANSETRON 4 MG/2 ML INJ IV (05:10)
[2021-05-22] MEDS: SODIUM CHLORIDE 0.9% 1,000 ML 1000 ML IV (05:10)
[2021-05-22 05:32] LABS: UR Morphine/Opiate cutoff 300 Positive (Negative); Ur Creatinine Normal (Normal); Ur Specific Gravity Normal (Normal); Urine Amphetamines Negative (Negative); Urine Barbiturates Negative (Negative); Urine Benzodiazepines Negative (Negative); Urine Cocaine Negative (Negative); Urine MDMA Negative (Negative); Urine Methadone Negative (Negative); Urine Methamphetamines Negative (Negative); Urine Oxycodone Positive (Negative); Urine Phencyclidine Negative (Negative); Urine Tetrahydrocannabinol Negative (Negative); Urine Tricyclic Antidepressant Negative (Negative); Urine pH Normal (Normal)
== END 2021-05-22 06:08 | disposition home or self-care (01) ==
PROVIDERS: Emergency Provider Emergency Medicine; PCP Physician Assistant
DX: M79.10 Myalgia, unspecified site (principal); R11.2 Nausea with vomiting, unspecified
CPT/HCPCS: 36415; 80053; 80305; 81003; 81025; 85025; 96361; 96374; 99284; J2405